=== PATIENT | female | born 1990 | race Caucasian/White ===

== ENCOUNTER 2019-06-14 22:25 | Emergency (ER) | payer OTHER ==
--- NOTE | 2019-06-14 22:48 | ER Document Report ---
ED Medical Screen (RME) - General Chief Complaint: Lower Abdominal Pain Stated Complaint: STOMACH PAIN Time Seen by Provider: 06/14/19 22:42 Mode of Arrival: Ambulatory Information source: Patient Notes: This 28-year-old female with history of Crohn's multiple blood transfusions and C. difficile presents emergency department with severe abdominal pain and diarrhea. She reports she believes she has C. difficile again. Reports she was on Levaquin and recently for oral infection. She also complains of lower abdominal pain. Reports she has not had a flare of her Crohn's in 15 months. Patient reports she is in severe pain no fever vomiting. She is visiting from [place]. I have greeted and performed a rapid initial assessment of this patient. A comprehensive ED assessment and evaluation of the patient, analysis of test results and completion of the medical decision making process will be conducted by additional ED providers. Dictation of this chart was performed using voice recognition software; therefore, there may be some unintended grammatical errors. - Related Data Allergies/Adverse Reactions: aspirin Allergy (Verified 06/14/19 22:42) ketorolac [From Toradol] Allergy (Verified 06/14/19 22:42) NSAIDS (Non-Steroidal Anti-Inflamma Allergy (Verified 06/14/19 22:42)
[2019-06-14 22:51] VITALS: BP 130/75
[2019-06-14 23:26] LABS: ABSOLUTE BASOPHILS # (AUTO) 0.1 10^3/uL (0.0-0.2); ABSOLUTE LYMPHOCYTES (AUTO) 1.3 10^3/uL (0.5-4.7); ABSOLUTE MONOCYTES (AUTO) 0.4 10^3/uL (0.1-1.4); ABSOLUTE NEUT (AUTO) 3.9 10^3/uL (1.7-8.2); BASOPHILS % (AUTO) 1.1 % (0-2); EOSINOPHILS % (AUTO) 0.2 % (0-6); HEMATOCRIT 32.2 % (36.0-47.0); HEMOGLOBIN 10.6 g/dL (12.0-15.5); LYMPHOCYTES % (AUTO) 22.8 % (13-45); MEAN CORPUSCULAR HEMOGLOBIN 26.3 pg (27.0-33.4); MEAN CORPUSCULAR VOLUME 80 fl (80-97); MONOCYTES % (AUTO) 6.7 % (3-13); PLATELET COUNT 326 10^3/uL (150-450); RED BLOOD COUNT 4.03 10^6/uL (3.72-5.28); RED CELL DISTRIBUTION WIDTH 16.7 % (11.5-14.0); SEGMENTED NEUTROPHILS % (AUTO) 69.2 % (42-78); TOTAL CELLS COUNTED % (AUTO) 100 %; WHITE BLOOD COUNT 5.6 10^3/uL (4.0-10.5)
== END 2019-06-15 01:30 | disposition left against medical advice (07) ==
LOC: ER 22:25
DX: Z53.21 Procedure and treatment not carried out due to patient leaving prior to being seen by health care provider (principal); R10.30 Lower abdominal pain, unspecified; R19.7 Diarrhea, unspecified
CPT/HCPCS: 36415; 85025; 87040; 99281

== ENCOUNTER 2019-06-15 13:21 | Emergency (ER) | payer OTHER ==
--- NOTE | 2019-06-15 13:34 | ER Document Report ---
ED Medical Screen (RME) - General Stated Complaint: ABDOMINAL PAIN Time Seen by Provider: 06/15/19 13:27 Mode of Arrival: Ambulatory Information source: Patient Notes: 28-year-old female with history of Crohn's and C. difficile presents emergency department with complaints of severe abdominal pain and diarrhea. Reports she was on Levaquin recently for an oral infection. So she is worried she has C. difficile again. She also complains of lower abdominal pain. Reports she has not had a flare of her Crohn's in 15 months. Patient reports she is in severe pain with no vomiting but reports fever this morning.. She is visiting from [place]. Patient was here last night but left without completing her visit. She reports she was up all night. Reports she used Zofran and Phenergan suppository without relief of symptoms. Patient is visiting from [place]. Reports she is here visiting her boyfriend. Denies reports BTL and she has not had sex. She looks nontoxic. I have greeted and performed a rapid initial assessment of this patient. A comprehensive ED assessment and evaluation of the patient, analysis of test results and completion of the medical decision making process will be conducted by additional ED providers. Dictation of this chart was performed using voice recognition software; therefore, there may be some unintended grammatical errors. - Related Data Allergies/Adverse Reactions: aspirin Allergy (Verified 06/15/19 13:35) ciprofloxacin [From Cipro] Allergy (Verified 06/15/19 13:35) haloperidol [From Haldol] Allergy (Verified 06/15/19 13:35) ketorolac [From Toradol] Allergy (Verified 06/15/19 13:35) NSAIDS (Non-Steroidal Anti-Inflamma Allergy (Verified 06/15/19 13:35) piperacillin [From Zosyn] Allergy (Verified 06/15/19 13:35) sulfamethoxazole [From Bactrim] Allergy (Verified 06/15/19 13:35) tazobactam [From Zosyn] Allergy (Verified 06/15/19 13:35) trimethoprim [From Bactrim] Allergy (Verified 06/15/19 13:35) Must be pre medicated proior to CT Allergy (Uncoded 06/15/19 13:35) Physical Exam - Vital signs Vitals: Temp Pulse Resp BP Pulse Ox 98.7 F 86 16 127/79 H 99 06/15/19 13:24 06/15/19 13:24 06/15/19 13:24 06/15/19 13:24 06/15/19 13:24 Course - Vital Signs Vital signs: Temp Pulse Resp BP Pulse Ox 98.7 F 86 16 127/79 H 99 06/15/19 13:24 06/15/19 13:24 06/15/19 13:24 06/15/19 13:24 06/15/19 13:24
--- NOTE | 2019-06-15 14:44 | ER Document Report ---
ED GI/ - General Chief Complaint: Abdominal Pain Stated Complaint: ABDOMINAL PAIN Time Seen by Provider: 06/15/19 13:27 Primary Care Provider: RANDOLPH OFSTER MD [ACTIVE STAFF] - Follow up as needed RICHI CARD MD [ACTIVE STAFF] - Follow up as needed Mode of Arrival: Ambulatory Information source: Patient Notes: Patient is a 28-year-old female with past medical history of Crohn's disease presenting with generalized abdominal pain, vomiting, diarrhea and fever. P atient reports all symptoms started yesterday. She reports T-max of 102 this morning. She reports history of having C. difficile in the past and having been on Humira although she has not taken that for quite some time. 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 TRAVEL OUTSIDE OF THE [place] IN LAST 30 DAYS: No - Related Data Allergies/Adverse Reactions: aspirin Allergy (Verified 06/15/19 13:35) ciprofloxacin [From Cipro] Allergy (Verified 06/15/19 13:35) haloperidol [From Haldol] Allergy (Verified 06/15/19 13:35) ketorolac [From Toradol] Allergy (Verified 06/15/19 13:35) NSAIDS (Non-Steroidal Anti-Inflamma Allergy (Verified 06/15/19 13:35) piperacillin [From Zosyn] Allergy (Verified 06/15/19 13:35) sulfamethoxazole [From Bactrim] Allergy (Verified 06/15/19 13:35) tazobactam [From Zosyn] Allergy (Verified 06/15/19 13:35) trimethoprim [From Bactrim] Allergy (Verified 06/15/19 13:35) Must be pre medicated proior to CT Allergy (Uncoded 06/15/19 13:35) Past Medical History - General Information source: Patient - Social History Smoking Status: Never Smoker Chew tobacco use (# tins/day): No Frequency of alcohol use: None Drug Abuse: Marijuana Family History: Reviewed & Not Pertinent Patient has suicidal ideation: No Patient has homicidal ideation: No GI Medical History: Reports: Hx Crohn's Disease Review of Systems - Review of Systems Constitutional: Fever EENT: No symptoms reported Cardiovascular: No symptoms reported Respiratory: No symptoms reported Gastrointestinal: Abdominal pain, Diarrhea, Nausea, Vomiting Genitourinary: No symptoms reported Female Genitourinary: No symptoms reported Musculoskeletal: No symptoms reported Skin: No symptoms reported Hematologic/Lymphatic: No symptoms reported Neurological/Psychological: No symptoms reported Physical Exam - Vital signs Vitals: Temp Pulse Resp BP Pulse Ox 98.7 F 86 16 127/79 H 99 06/15/19 13:24 06/15/19 13:24 06/15/19 13:24 06/15/19 13:24 06/15/19 13:24 - Notes Notes: PHYSICAL EXAMINATION: GENERAL: Well-appearing, well-nourished and in no acute distress. HEAD: Atraumatic, normocephalic. EYES: Pupils equal round and reactive to light, extraocular movements intact, conjunctiva are normal. ENT: Nares patent, oropharynx clear without exudates. Moist mucous membranes. NECK: Normal range of motion, supple without lymphadenopathy LUNGS: Breath sounds clear to auscultation bilaterally and equal. No wheezes rales or rhonchi. HEART: Regular rate and rhythm without murmurs ABDOMEN: Soft, nondistended abdomen. Mild generalized tenderness to palpation. No guarding, no rebound. No masses appreciated. Female : deferred Musculoskeletal: Normal range of motion, no pitting or edema. No cyanosis. NEUROLOGICAL: Cranial nerves grossly intact. Normal speech, normal gait. Normal sensory, motor exams PSYCH: Normal mood, normal affect. SKIN: Warm, Dry, normal turgor, no rashes or lesions noted. Course - Re-evaluation Re-evalutation: Patient appears well, nontoxic, vital signs as listed. Work-up today has been unremarkable as outlined below. Likely Crohn's flare. Will start patient on appropriate medications. Patient verbalizes understanding and agreement with this plan. ED return precautions were discussed. Laboratory 06/15/19 06/15/19 06/15/19 15:25 15:28 15:28 WBC 3.6 L RBC 3.87 Hgb 9.9 L Hct 31.1 L MCV 80 MCH 25.7 L MCHC 32.0 RDW 16.7 H Plt Count 305 Lymph % (Auto) 27.6 Stephens % (Auto) 6.7 Eos % (Auto) 0.4 Baso % (Auto) 1.0 Absolute Neuts (auto) 2.3 Absolute Lymphs (auto) 1.0 Absolute Monos (auto) 0.2 Absolute Eos (auto) 0.0 Absolute Basos (auto) 0.0 Seg Neutrophils % 64.3 Sodium 140.9 Potassium 4.2 Chloride 102 Carbon Dioxide 26 Anion Gap 13 BUN 21 H Creatinine 0.58 Est GFR ( Amer) > 60 Est GFR (MDRD) Non-Af > 60 Glucose 85 Calcium 10.1 Total Bilirubin 0.6 Direct Bilirubin 0.1 Neonat Total Bilirubin Not Reportable Neonat Direct Bilirubin Not Reportable Neonat Indirect Bili Not Reportable AST 21 ALT 9 Alkaline Phosphatase 57 Total Protein 8.4 H Albumin 5.2 H Urine Color SHERI Urine Appearance CLOUDY Urine pH 6.0 Ur Specific [place] 1.024 Urine Protein 30 H Urine Glucose (UA) NEGATIVE Urine Ketones NEGATIVE Urine Blood LARGE H Urine Nitrite NEGATIVE Urine Bilirubin NEGATIVE Urine Urobilinogen NEGATIVE Ur Leukocyte Esterase MODERATE H Urine WBC (Auto) 47 Urine RBC (Auto) 9 Urine Bacteria (Auto) TRACE Squamous Epi Cells Auto 16 Urine Mucus (Auto) MANY Urine Ascorbic Acid NEGATIVE Urine HCG, Qual NEGATIVE POC Stool Occult Blood 06/15/19 18:00 WBC RBC Hgb Hct MCV MCH MCHC RDW Plt Count Lymph % (Auto) Stephens % (Auto) Eos % (Auto) Baso % (Auto) Absolute Neuts (auto) Absolute Lymphs (auto) Absolute Monos (auto) Absolute Eos (auto) Absolute Basos (auto) Seg Neutrophils % Sodium Potassium Chloride Carbon Dioxide Anion Gap BUN Creatinine Est GFR ( Amer) Est GFR (MDRD) Non-Af Glucose Calcium Total Bilirubin Direct Bilirubin Neonat Total Bilirubin Neonat Direct Bilirubin Neonat Indirect Bili AST ALT Alkaline Phosphatase Total Protein Albumin Urine Color Urine Appearance Urine pH Ur Specific [place] Urine Protein Urine Glucose (UA) Urine Ketones Urine Blood Urine Nitrite Urine Bilirubin Urine Urobilinogen Ur Leukocyte Esterase Urine WBC (Auto) Urine RBC (Auto) Urine Bacteria (Auto) Squamous Epi Cells Auto Urine Mucus (Auto) Urine Ascorbic Acid Urine HCG, Qual POC Stool Occult Blood POSITIVE Abdomen/Pelvis CT 06/15/19 13:32 IMPRESSION: NO SIGNIFICANT OR ACUTE FINDING IN THE ABDOMEN OR PELVIS ON CT SCAN WITH IV CONTRAST. - Vital Signs Vital signs: Temp Pulse Resp BP Pulse Ox 98.4 F 79 16 110/59 L 98 06/15/19 18:15 06/15/19 18:15 06/15/19 18:15 06/15/19 18:15 06/15/19 18:15 - Laboratory Result Diagrams: 06/15/19 15:28 06/15/19 15:28 Laboratory results interpreted by me: 06/15/19 06/15/19 06/15/19 15:25 15:28 15:28 WBC 3.6 L Hgb 9.9 L Hct 31.1 L MCH 25.7 L RDW 16.7 H BUN 21 H Total Protein 8.4 H Albumin 5.2 H Urine Protein 30 H Urine Blood LARGE H Ur Leukocyte Esterase MODERATE H Discharge - Discharge Clinical Impression: Crohns disease Qualifiers: Gastrointestinal tract location: unspecified location Digestive disease complication type: unspecified complication Qualified Code(s): K50.919 - Crohn's disease, unspecified, with unspecified complications Abdominal pain Qualifiers: Abdominal location: unspecified location Qualified Code(s): R10.9 - Unspecified abdominal pain Condition: Stable Disposition: HOME, SELF-CARE Additional Instructions: You are seen in the emergency department today for a flareup of your Crohn's. Your white blood count was not elevated so there is no evidence of obvious infection at this time. Your hemoglobin and hematocrit did drop slightly but not enough to warrant any medical intervention. Please follow-up with gastroenterology, names have been provided for you below. Please take medications as prescribed. Return to the emergency department with any new or worsening symptoms. Prescriptions: Prednisone [Deltasone] 40 mg PO DAILY #14 tablet Metronidazole [Flagyl 500 mg Tablet] 500 mg PO TID #21 tablet Referrals: RANDOLPH FOSTER MD [ACTIVE STAFF] - Follow up as needed RICHI CADR MD [ACTIVE STAFF] - Follow up as needed
[2019-06-15] MEDS ORDERED: MORPHINE SULFATE 10 MG/ML INJ IV ONE (14:59)
[2019-06-15] MEDS ORDERED: ONDANSETRON HCL INJ/PF 4 MG/2 ML SDV IV ONE (14:59)
[2019-06-15] MEDS ORDERED: DIPHENHYDRAMINE HCL 50 MG/ML VIAL IV ONE (15:03)
[2019-06-15] MEDS ORDERED: FAMOTIDINE INJ/PF 20 MG/2 ML SDV IV ONE (15:03)
[2019-06-15] MEDS ORDERED: METHYLPREDNISOLONE INJ 125 MG/2 ML SDV IV ONE (15:03)
[2019-06-15 15:42] LABS: ABSOLUTE MONOCYTES (AUTO) 0.2 10^3/uL (0.1-1.4); ABSOLUTE NEUT (AUTO) 2.3 10^3/uL (1.7-8.2); EOSINOPHILS % (AUTO) 0.4 % (0-6); HEMATOCRIT 31.1 % (36.0-47.0); HEMOGLOBIN 9.9 g/dL (12.0-15.5); LYMPHOCYTES % (AUTO) 27.6 % (13-45); MEAN CORPUSCULAR HEMOGLOBIN 25.7 pg (27.0-33.4); MEAN CORPUSCULAR VOLUME 80 fl (80-97); MONOCYTES % (AUTO) 6.7 % (3-13); PLATELET COUNT 305 10^3/uL (150-450); RED BLOOD COUNT 3.87 10^6/uL (3.72-5.28); RED CELL DISTRIBUTION WIDTH 16.7 % (11.5-14.0); SEGMENTED NEUTROPHILS % (AUTO) 64.3 % (42-78); TOTAL CELLS COUNTED % (AUTO) 100 %; WHITE BLOOD COUNT 3.6 10^3/uL (4.0-10.5)
[2019-06-15 16:02] LABS: ALBUMIN 5.2 g/dL (3.5-5.0); ALKALINE PHOSPHATASE 57 U/L (38-126); ANION GAP 13 (5-19); ASPARTATE AMINO TRANSFERASE 21 U/L (14-36); BILIRUBIN,DIRECT 0.1 mg/dL (0.0-0.4); BILIRUBIN,TOTAL 0.6 mg/dL (0.2-1.3); BLOOD UREA NITROGEN 21 mg/dL (7-20); CALCIUM 10.1 mg/dL (8.4-10.2); CARBON DIOXIDE 26 mmol/L (22-30); CHLORIDE 102 mmol/L (98-107); GLUCOSE 85 mg/dL (75-110); POTASSIUM 4.2 mmol/L (3.6-5.0); TOTAL PROTEIN 8.4 g/dL (6.3-8.2)
[2019-06-15 16:19] LABS: APPEARANCE,URINE CLOUDY; BILIRUBIN,URINE NEGATIVE (NEGATIVE); COLOR,URINE AMBER; GLUCOSE, URINE NEGATIVE (NEGATIVE); KETONES,URINE NEGATIVE (NEGATIVE); LEUKOCYTE ESTERASE,URINE MODERATE (NEGATIVE); NITRITE,URINE NEGATIVE (NEGATIVE); PROTEIN,URINE 30 mg/dL (NEGATIVE); URINE SPECIFIC GRAVITY 1.024; UROBILINOGEN,URINE NEGATIVE mg/dL (<2.0)
--- NOTE | 2019-06-15 16:35 | RADIOLOGY REPORT (SQ) ---
EXAM DESCRIPTION: CT ABD/PELVIS WITH IV ONLY COMPLETED DATE/TIME: 06/15/2019 4:17 pm REASON FOR STUDY: pain diarrhea hx crohns COMPARISON: None. TECHNIQUE: CT scan of the abdomen and pelvis performed using helical scanning technique with dynamic intravenous contrast injection. No oral contrast. Images reviewed with lung, soft tissue, and bone windows. Reconstructed coronal and sagittal MPR images reviewed. Delayed images for evaluation of the urinary system also acquired. All images stored on PACS. All CT scanners at this facility use dose modulation, iterative reconstruction, and/or weight based d osing when appropriate to reduce radiation dose to as low as reasonably achievable (ALARA). [facility]: Dose Right [facility]: CareDose [facility]: Dose Right [facility]: Teradose 4D [facility]: Nexterra CONTRAST TYPE AND DOSE: contrast/concentration: Isovue 350.00 mg/ml; Total Contrast Delivered: 66.0 ml; Total Saline Delivered: 53.9 ml RENAL FUNCTION: None required. The patient is less than 50 years old. RADIATION DOSE: CT Rad equipment meets quality standard of care and radiation dose reduction techniq ues were employed. CTDIvol: 3.0 - 3.5 mGy. DLP: 340 mGy-cm.. LIMITATIONS: None. FINDINGS: LOWER CHEST: No significant findings. No nodules or infiltrates. LIVER: Normal size. No masses. No dilated ducts. SPLEEN: Normal size. No focal lesions. PANCREAS: No masses. No significant calcifications. No adjacent inflammation or peripancreatic fluid collections. Pancreatic duct not dilated. GALLBLADDER: Status post cholecystectomy with slight central intrahepatic and common duct distention, chronic. ADRENAL GLANDS: No significant masses or asymmetry. RIGHT KIDNEY AND URETER: No solid masses. No significant calcification. No hydronephrosis or hydroure ter. LEFT KIDNEY AND URETER: No solid masses. No significant calcification. No hydronephrosis or hydrouret er. AORTA AND VESSELS: No aneurysm. No dissection. Renal arteries, SMA, celiac without stenosis. RETROPERITONEUM: No retroperitoneal adenopathy, hemorrhage or masses. BOWEL AND PERITONEAL CAVITY: No masses or inflammatory changes. No free fluid or peritoneal masses. APPENDIX: Surgically absent. PELVIS: No mass. No free fluid. Normal bladder. ABDOMINAL WALL: No masses. No hernias. BONES: No significant or acute findings. OTHER: No other significant finding. IMPRESSION: NO SIGNIFICANT OR ACUTE FINDING IN THE ABDOMEN OR PELVIS ON CT SCAN WITH IV CONTRAST. TECHNICAL DOCUMENTATION: JOB ID: [id number] Quality ID # [id number]: Final reports with documentation of one or more dose reduction techniques (e.g., Au tomated exposure control, adjustment of the mA and/or kV according to patient size, use of iterative reconstruction technique) 2010 [email or web address]- All Rights Reserved Reading location - IP/workstation name: [email or web address]
[2019-06-15 18:16] VITALS: BP 110/59
== END 2019-06-15 18:26 | disposition home or self-care (01) ==
LOC: ER 13:21
DX: K50.919 Crohn's disease, unspecified, with unspecified complications (principal); R10.84 Generalized abdominal pain; R10.817 Generalized abdominal tenderness; R11.2 Nausea with vomiting, unspecified; R19.7 Diarrhea, unspecified; R50.9 Fever, unspecified; Z88.8 Allergy status to other drugs, medicaments and biological substances; Z88.1 Allergy status to other antibiotic agents; Z88.0 Allergy status to penicillin
CPT/HCPCS: 99284; 96374; 96375; 36415; 85025; 81025; 80053; 81001; 74177; J1200; J2930; J2270; J2405; S0028

== ENCOUNTER 2019-06-20 09:13 | Emergency (ER) | payer OTHER ==
[2019-06-20 09:31] VITALS: BP 117/65
[2019-06-20] MEDS ORDERED: PHENAZOPYRIDINE HCL 200 MG TABLET PO ONE (09:43)
[2019-06-20] MEDS ORDERED: ONDANSETRON HCL INJ/PF 4 MG/2 ML SDV IV ONE (09:43)
[2019-06-20] MEDS ORDERED: NORMAL SALINE 1000 ML 1,000 ML IV PRN (09:43)
--- NOTE | 2019-06-20 09:49 | ER Document Report ---
ED Medical Screen (RME) - General Chief Complaint: Urinary Problem Stated Complaint: PAINFUL URINATION,BLOOD IN URINE Time Seen by Provider: 06/20/19 09:43 Mode of Arrival: Ambulatory Information source: Patient Notes: 28-year-old female presented to ED for complaint of severe bladder pain with bilateral pain worse on the left. She states she does have some blood and clots in the urine. She does have interstitial cystitis. She has Crohn's. She has a history of a 5 years ago fecal implant. Patient is alert oriented respirations regular and unlabored speaking full sentences she is nontoxic in appearance. I have greeted and performed a rapid initial assessment of this patient. A comprehensive ED assessment and evaluation of the patient, analysis of test results and completion of medical decision making process will be conducted by an additional ED providers. TRAVEL OUTSIDE OF THE [place] IN LAST 30 DAYS: No - Related Data Allergies/Adverse Reactions: aspirin Allergy (Verified 06/15/19 13:35) ciprofloxacin [From Cipro] Allergy (Verified 06/15/19 13:35) haloperidol [From Haldol] Allergy (Verified 06/15/19 13:35) ketorolac [From Toradol] Allergy (Verified 06/15/19 13:35) NSAIDS (Non-Steroidal Anti-Inflamma Allergy (Verified 06/15/19 13:35) piperacillin [From Zosyn] Allergy (Verified 06/15/19 13:35) sulfamethoxazole [From Bactrim] Allergy (Verified 06/15/19 13:35) tazobactam [From Zosyn] Allergy (Verified 06/15/19 13:35) trimethoprim [From Bactrim] Allergy (Verified 06/15/19 13:35) Must be pre medicated proior to CT Allergy (Uncoded 06/15/19 13:35) Past Medical History - Social History Frequency of alcohol use: Rare Drug Abuse: Marijuana Renal/ Medical History: Reports: Hx Kidney Stones GI Medical History: Reports: Hx Crohn's Disease Physical Exam - Vital signs Vitals: Temp Pulse Resp BP Pulse Ox 97.9 F 84 16 117/65 100 06/20/19 09:28 06/20/19 09:28 06/20/19 09:28 06/20/19 09:28 06/20/19 09:28 Course - Vital Signs Vital signs: Temp Pulse Resp BP Pulse Ox 97.9 F 84 16 117/65 100 06/20/19 09:28 06/20/19 09:28 06/20/19 09:28 06/20/19 09:28 06/20/19 09:28
[2019-06-20 10:54] LABS: ABSOLUTE BASOPHILS # (AUTO) 0.1 10^3/uL (0.0-0.2); ABSOLUTE EOSINOPHILS # (AUTO) 0.1 10^3/uL (0.0-0.6); ABSOLUTE MONOCYTES (AUTO) 0.3 10^3/uL (0.1-1.4); ABSOLUTE NEUT (AUTO) 8.7 10^3/uL (1.7-8.2); BASOPHILS % (AUTO) 0.5 % (0-2); EOSINOPHILS % (AUTO) 0.7 % (0-6); HEMATOCRIT 32.4 % (36.0-47.0); HEMOGLOBIN 10.3 g/dL (12.0-15.5); LYMPHOCYTES % (AUTO) 10.2 % (13-45); MEAN CORPUSCULAR HEMOGLOBIN 25.4 pg (27.0-33.4); MEAN CORPUSCULAR HGB CONC 31.8 g/dL (32.0-36.0); MEAN CORPUSCULAR VOLUME 80 fl (80-97); MONOCYTES % (AUTO) 3.4 % (3-13); PLATELET COUNT 332 10^3/uL (150-450); RED BLOOD COUNT 4.07 10^6/uL (3.72-5.28); RED CELL DISTRIBUTION WIDTH 16.6 % (11.5-14.0); SEGMENTED NEUTROPHILS % (AUTO) 85.2 % (42-78); TOTAL CELLS COUNTED % (AUTO) 100 %; WHITE BLOOD COUNT 10.2 10^3/uL (4.0-10.5)
[2019-06-20 11:09] LABS: APPEARANCE,URINE CLOUDY; BILIRUBIN,URINE NEGATIVE (NEGATIVE); COLOR,URINE RED; GLUCOSE, URINE NEGATIVE (NEGATIVE); KETONES,URINE NEGATIVE (NEGATIVE); LEUKOCYTE ESTERASE,URINE MODERATE (NEGATIVE); NITRITE,URINE NEGATIVE (NEGATIVE); PROTEIN,URINE 100 mg/dL (NEGATIVE); URINE SPECIFIC GRAVITY 1.019; UROBILINOGEN,URINE NEGATIVE mg/dL (<2.0)
[2019-06-20 11:30] LABS: ALKALINE PHOSPHATASE 57 U/L (38-126); ANION GAP 10 (5-19); ASPARTATE AMINO TRANSFERASE 18 U/L (14-36); BILIRUBIN,DIRECT 0.1 mg/dL (0.0-0.4); BILIRUBIN,TOTAL 0.4 mg/dL (0.2-1.3); BLOOD UREA NITROGEN 17 mg/dL (7-20); CALCIUM 10.1 mg/dL (8.4-10.2); CARBON DIOXIDE 25 mmol/L (22-30); CHLORIDE 105 mmol/L (98-107); GLUCOSE 92 mg/dL (75-110); POTASSIUM 4.1 mmol/L (3.6-5.0); TOTAL PROTEIN 8.4 g/dL (6.3-8.2)
== END 2019-06-20 10:39 | disposition left against medical advice (07) ==
LOC: ER 09:13
DX: N30.11 Interstitial cystitis (chronic) with hematuria (principal); Z53.29 Procedure and treatment not carried out because of patient's decision for other reasons; Z88.8 Allergy status to other drugs, medicaments and biological substances; Z88.1 Allergy status to other antibiotic agents; Z88.0 Allergy status to penicillin
CPT/HCPCS: 36415; 87086; 84703; 85025; 87088; 80053; 81001; J3490; 87186

== ENCOUNTER 2019-07-13 18:13 | Emergency (ER) | payer OTHER, MEDICAID ==
[2019-07-13 18:19] VITALS: BP 119/69
--- NOTE | 2019-07-13 18:50 | ER Document Report ---
ED Medical Screen (RME) - General Chief Complaint: Nausea/Vomiting Stated Complaint: VOMITING Time Seen by Provider: 07/13/19 18:48 Mode of Arrival: Wheelchair Information source: Patient Notes: 28-year-old female presented to ED for nausea and vomiting for the last 2 days. She states she feels like her incision is ripping open her daughter is 5. She has had adhesions in this area 2 years ago. He states she had a blackout spell just before coming in here that is why the family brought her in now. She states she has Zofran and Phenergan at home neither one is helping her at this time. Patient is alert and oriented respirations regular nonlabored speaking in full sentences. She states her last menstrual cycle was a week and a half ago. TRAVEL OUTSIDE OF THE [place] IN LAST 30 DAYS: No - Related Data Allergies/Adverse Reactions: aspirin Allergy (Verified 07/13/19 18:40) ciprofloxacin [From Cipro] Allergy (Verified 07/13/19 18:40) haloperidol [From Haldol] Allergy (Verified 07/13/19 18:40) ketorolac [From Toradol] Allergy (Verified 07/13/19 18:40) NSAIDS (Non-Steroidal Anti-Inflamma Allergy (Verified 07/13/19 18:40) piperacillin [From Zosyn] Allergy (Verified 07/13/19 18:40) sulfamethoxazole [From Bactrim] Allergy (Verified 07/13/19 18:40) tazobactam [From Zosyn] Allergy (Verified 07/13/19 18:40) trimethoprim [From Bactrim] Allergy (Verified 07/13/19 18:40) Must be pre medicated proior to CT Allergy (Uncoded 07/13/19 18:40) Past Medical History - Social History Chew tobacco use (# tins/day): No Frequency of alcohol use: Rare Drug Abuse: Marijuana Renal/ Medical History: Reports: Hx Kidney Stones GI Medical History: Reports: Hx Crohn's Disease Physical Exam - Vital signs Vitals: Temp Pulse Resp BP Pulse Ox 97.9 F 100 16 119/69 100 07/13/19 18:18 07/13/19 18:18 07/13/19 18:18 07/13/19 18:18 07/13/19 18:18 Course - Vital Signs Vital signs: Temp Pulse Resp BP Pulse Ox 97.9 F 100 16 119/69 100 07/13/19 18:18 07/13/19 18:18 07/13/19 18:18 07/13/19 18:18 07/13/19 18:18
[2019-07-13] MEDS ORDERED: ONDANSETRON HCL INJ/PF 4 MG/2 ML SDV IM ONE (18:52)
== END 2019-07-13 19:45 | disposition left against medical advice (07) ==
LOC: ER 18:13
DX: R11.2 Nausea with vomiting, unspecified (principal); Z88.6 Allergy status to analgesic agent; Z88.3 Allergy status to other anti-infective agents; Z87.442 Personal history of urinary calculi

== ENCOUNTER 2019-08-14 13:44 | Emergency (ER) | payer OTHER ==
[2019-08-14 13:48] VITALS: BP 135/79
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
== END 2019-08-14 15:10 | disposition home or self-care (01) ==
LOC: ER 13:44
DX: M25.511 Pain in right shoulder (principal); T14.90XA Injury, unspecified, initial encounter; M25.561 Pain in right knee; M25.551 Pain in right hip; R07.81 Pleurodynia; V49.50XA Passenger injured in collision with unspecified motor vehicles in traffic accident, initial encounter; Z88.8 Allergy status to other drugs, medicaments and biological substances; Z88.1 Allergy status to other antibiotic agents; Z88.0 Allergy status to penicillin
CPT/HCPCS: 99283

== ENCOUNTER 2019-08-28 18:01 | Emergency (ER) | payer OTHER ==
[2019-08-28 19:01] LABS: APPEARANCE,URINE SLIGHTLY-CLOUDY; BILIRUBIN,URINE NEGATIVE (NEGATIVE); COLOR,URINE YELLOW; GLUCOSE, URINE NEGATIVE (NEGATIVE); KETONES,URINE NEGATIVE (NEGATIVE); LEUKOCYTE ESTERASE,URINE SMALL (NEGATIVE); NITRITE,URINE NEGATIVE (NEGATIVE); PROTEIN,URINE 30 mg/dL (NEGATIVE); URINE SPECIFIC GRAVITY 1.021; UROBILINOGEN,URINE NEGATIVE mg/dL (<2.0)
[2019-08-28] MEDS ORDERED: FENTANYL CITRATE INJ/PF 100 MCG/2 ML AMPUL IV ONE (20:04)
[2019-08-28] MEDS ORDERED: ONDANSETRON HCL INJ/PF 4 MG/2 ML SDV IV ONE (20:06)
[2019-08-28] MEDS ORDERED: NORMAL SALINE 1000 ML 1,000 ML IV ONE ×2 (20:06→22:27)
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
[2019-08-28 20:17] LABS: ABSOLUTE EOSINOPHILS # (AUTO) 0.1 10^3/uL (0.0-0.6); ABSOLUTE LYMPHOCYTES (AUTO) 1.7 10^3/uL (0.5-4.7); ABSOLUTE MONOCYTES (AUTO) 0.4 10^3/uL (0.1-1.4); ABSOLUTE NEUT (AUTO) 3.7 10^3/uL (1.7-8.2); BASOPHILS % (AUTO) 0.7 % (0-2); EOSINOPHILS % (AUTO) 1.6 % (0-6); HEMATOCRIT 33.9 % (36.0-47.0); HEMOGLOBIN 11.1 g/dL (12.0-15.5); LYMPHOCYTES % (AUTO) 28.5 % (13-45); MEAN CORPUSCULAR HGB CONC 32.9 g/dL (32.0-36.0); MEAN CORPUSCULAR VOLUME 76 fl (80-97); MONOCYTES % (AUTO) 7.1 % (3-13); PLATELET COUNT 384 10^3/uL (150-450); RED BLOOD COUNT 4.46 10^6/uL (3.72-5.28); RED CELL DISTRIBUTION WIDTH 18.2 % (11.5-14.0); SEGMENTED NEUTROPHILS % (AUTO) 62.1 % (42-78); TOTAL CELLS COUNTED % (AUTO) 100 %; WHITE BLOOD COUNT 5.9 10^3/uL (4.0-10.5)
[2019-08-28 20:29] LABS: ALBUMIN 5.2 g/dL (3.5-5.0); ALKALINE PHOSPHATASE 105 U/L (38-126); ANION GAP 13 (5-19); ASPARTATE AMINO TRANSFERASE 27 U/L (14-36); BILIRUBIN,DIRECT 0.1 mg/dL (0.0-0.4); BILIRUBIN,TOTAL 0.4 mg/dL (0.2-1.3); BLOOD UREA NITROGEN 15 mg/dL (7-20); CALCIUM 10.4 mg/dL (8.4-10.2); CARBON DIOXIDE 25 mmol/L (22-30); CHLORIDE 102 mmol/L (98-107); GLUCOSE 93 mg/dL (75-110); POTASSIUM 4.8 mmol/L (3.6-5.0); TOTAL PROTEIN 8.8 g/dL (6.3-8.2)
--- NOTE | 2019-08-28 22:33 | ER Document Report ---
ED GI/ - General Chief Complaint: Abdominal Pain Stated Complaint: SHORTNESS OF BREATH Time Seen by Provider: 08/28/19 19:53 Primary Care Provider: ALEXUS MYERS MD [Primary Care Provider] - Follow up as needed Mode of Arrival: Ambulatory Notes: Ms. Morales is a 28 yo f w/ PMH Crohn's disease and iron deficiency anemia presenting to the ED for abdominal pain. States she has multiple episodes of diarrhea throughout the day that essentially nonstop. The diarrhea is quite foul-smelling in nature. Patient states that she was just discharged from [facility] on Wednesday. Prior to discharge this past Wednesday, the patient was started on IV antibiotic which she is unsure the name of states it starts with a C. She was in transition to the same antibiotic p.o. but stopped it yesterday she states she is worried that it is making her feel worse. She also endorses ongoing vomiting and states she is been unable to keep down p.o. Patient states that her abdominal pain is primarily in the left lower quadrant. Subjective chills without any documented fevers. Patient states that she was previously on Pentasa with remission for the past year. In addition, the patient had a fecal transplant approximately 4 years ago which helped her with symptoms for quite some time. No chest pain, cough or shortness of breath. TRAVEL OUTSIDE OF THE [place] IN LAST 30 DAYS: Yes - Related Data Allergies/Adverse Reactions: aspirin Allergy (Verified 07/13/19 18:40) ciprofloxacin [From Cipro] Allergy (Verified 07/13/19 18:40) haloperidol [From Haldol] Allergy (Verified 07/13/19 18:40) ketorolac [From Toradol] Allergy (Verified 07/13/19 18:40) NSAIDS (Non-Steroidal Anti-Inflamma Allergy (Verified 07/13/19 18:40) piperacillin [From Zosyn] Allergy (Verified 07/13/19 18:40) sulfamethoxazole [From Bactrim] Allergy (Verified 07/13/19 18:40) tazobactam [From Zosyn] Allergy (Verified 07/13/19 18:40) trimethoprim [From Bactrim] Allergy (Verified 07/13/19 18:40) Must be pre medicated proior to CT Allergy (Uncoded 07/13/19 18:40) Past Medical History - General Information source: Patient - Social History Smoking Status: Never Smoker Chew tobacco use (# tins/day): No Frequency of alcohol use: None Drug Abuse: None Family History: Reviewed & Not Pertinent Patient has suicidal ideation: No Patient has homicidal ideation: No Renal/ Medical History: Reports: Hx Kidney Stones GI Medical History: Reports: Hx Crohn's Disease Musculoskeletal Medical History: Reports Hx Musculoskeletal Trauma Infectious Medical History: Reports: Hx C-Diff Review of Systems - Review of Systems Constitutional: See HPI EENT: No symptoms reported Cardiovascular: No symptoms reported Respiratory: No symptoms reported Gastrointestinal: See HPI Genitourinary: No symptoms reported Female Genitourinary: No symptoms reported Musculoskeletal: No symptoms reported Skin: No symptoms reported Hematologic/Lymphatic: No symptoms reported Neurological/Psychological: No symptoms reported Physical Exam - Vital signs Vitals: Temp Resp Pulse Ox 98.1 F 16 100 08/28/19 18:01 08/28/19 18:01 08/28/19 18:01 Interpretation: Normal - General General appearance: Appears well, Alert - HEENT Head: Normocephalic, Atraumatic Eyes: Normal Pupils: PERRL Mucous membranes: Dry - Respiratory Respiratory status: No respiratory distress Chest status: Nontender Breath sounds: Normal Chest palpation: Normal - Cardiovascular Rhythm: Regular Heart sounds: Normal auscultation Murmur: No - Abdominal Inspection: Normal Distension: No distension Bowel sounds: Normal Tenderness: Tender - In the left lower quadrant without any rebound or guarding.. No: McBurney's point, Borges's sign, Guarding, Rebound Organomegaly: No organomegaly - Back Back: Normal, Nontender - Extremities General upper extremity: Normal inspection, Nontender, Normal color, Normal ROM, Normal temperature General lower extremity: Normal inspection, Nontender, Normal color, Normal ROM, Normal temperature, Normal weight bearing. No: Arabella's sign - Neurological Neuro grossly intact: Yes Cognition: Normal Orientation: AAOx4 [place] Coma Scale Eye Opening: Spontaneous [place] Coma Scale Verbal: Oriented [place] Coma Scale Motor: Obeys Commands Madhuri Coma Scale Total: 15 Speech: Normal Motor strength normal: LUE, RUE, LLE, RLE Sensory: Normal - Psychological Associated symptoms: Normal affect, Normal mood - Skin Skin Temperature: Warm Skin Moisture: Dry Skin Color: Normal Course - Re-evaluation Re-evalutation: She is generally well-appearing nontoxic. Initial vitals goal for mild tachycardia. Differential diagnosis includes Crohn's flare, electrolyte abnormality, dehydration, fistula formation (less likely) 08/28/19 22:34 I spoke in extensive amount of time discussing this patient and her significant other (>25min). Patient is adamant she does not want another CT as she has had numerous CTs in the past 2 years. She has been dealing with C. difficile on and off for the past 19 months and been placed on multiple antibiotics. She states that Levaquin was the first antibiotic that caused her to get C. difficile in the first place. Patient's labs are all okay doing CBC, CMP and UA. Patient's stool samples were sent prior to my evaluation. I noted that the C. difficile had not resulted so nursing staff called. Nursing staff states that the lab now back is all C. difficile and they run them at 3 AM. I explained that this would alter the patient's care and would be much more beneficial of the patient's C. difficile could be resulted now. Charge nurse Yue will call down the lab and see what can be done in regards to this. At this point in time patient feels that the risk of further CT is worse than what it could provide given that she is lived with Crohn's for many years. Given that it is 10:30 at night, unable to order MRI. 08/28/19 23:09 Patient's nurse Sarah presented to me and stated that the patient is no longer willing to wait for the C. difficile results. Patient had explained numerous times that she does not want to get another CT given her extensive Crohn's history and many previous CTs. charge nurse Yue, was able to call the lab and discussed with them running the patient C. difficile sooner than 3 AM and they are actively doing it however again the patient is unable to wait for the result. Unable to order MRI at 11 PM. Patient labs are otherwise unremarkable and her abdomen pelvis examination is nonacute. Patient given return precautions and will be discharged with instructions to follow-up with her GI doctor. - Vital Signs Vital signs: Temp Pulse Resp BP Pulse Ox 98.1 F 101 H 16 128/95 H 100 08/28/19 19:01 08/28/19 19:01 08/28/19 19:01 08/28/19 19:01 08/28/19 19:01 - Laboratory Result Diagrams: 08/28/19 19:19 08/28/19 19:19 Laboratory results interpreted by me: 08/28/19 08/28/19 08/28/19 18:20 19:19 19:19 Hgb 11.1 L Hct 33.9 L MCV 76 L MCH 25.0 L RDW 18.2 H Calcium 10.4 H Total Protein 8.8 H Albumin 5.2 H Urine Protein 30 H Urine Blood SMALL H Ur Leukocyte Esterase SMALL H Discharge - Discharge Clinical Impression: History of Crohn's disease Abdominal pain Qualifiers: Abdominal location: left lower quadrant Qualified Code(s): R10.32 - Left lower quadrant pain Condition: Good Disposition: HOME, SELF-CARE Instructions: Abdominal Pain ([facility]), Crohn's Disease ([facility]) Additional Instructions: You have decided to leave the emergency department today without awaiting the results of the C. difficile. You have also decided to forego a CT scan to further evaluate your Crohn's disease. An MRI is not possible at 10:30 PM at night. Your labs are within normal limits. If the C. difficile returns is positive, and member from the hospital team will call you and notify you that it is positive. I would recommend that you follow-up with your GI physician. Referrals: ALEXUS MYERS MD [Primary Care Provider] - Follow up as needed
[2019-08-28] MEDS ORDERED: METHYLPREDNISOLONE INJ 125 MG/2 ML SDV IV ONE (22:40)
[2019-08-28 23:21] VITALS: BP 132/73
[2019-08-28 23:42] LABS: C DIFFICILE GDH NEGATIVE (NEGATIVE)
== END 2019-08-28 23:39 | disposition home or self-care (01) ==
LOC: ER 18:01
DX: K50.90 Crohn's disease, unspecified, without complications (principal); R10.32 Left lower quadrant pain; R10.814 Left lower quadrant abdominal tenderness; Z88.8 Allergy status to other drugs, medicaments and biological substances; Z88.1 Allergy status to other antibiotic agents; Z88.0 Allergy status to penicillin
CPT/HCPCS: 99284; 96361; 96374; 96375; 86900; 86901; 36415; 87045; 89055; 87205; 86850; 83690; 84703; 85025; 82272; 81025; 80053; 81001; 87324; 87449; J3010; J2405; J7030

== ENCOUNTER 2019-09-13 15:27 | Emergency (ER) | payer OTHER ==
[2019-09-13] MEDS ORDERED: OXYCODONE-ACETAMINOPHEN 5-325 MG TABLET PO ONE (16:00)
--- NOTE | 2019-09-13 16:02 | ER Document Report ---
ED Medical Screen (RME) - General Chief Complaint: Vaginal Bleeding Stated Complaint: VAGINAL BLEEDING Time Seen by Provider: 09/13/19 15:56 Primary Care Provider: ALEXUS MYERS MD [Primary Care Provider] - Follow up as needed Mode of Arrival: Ambulatory Information source: Patient Notes: 28-year-old female with history of endometriosis and Crohn's presents today with complaints of abdominal cramping and vaginal bleeding for the past 3 days. Reports that she is having heavy vaginal bleeding having to change her Kotex pad every hour. Reports history of ovarian cyst. Denies fever reports she has vomited from the pain. Took Tylenol without relief of symptoms. I have greeted and performed a rapid initial assessment of this patient. A comprehensive ED assessment and evaluation of the patient, analysis of test results and completion of the medical decision making process will be conducted by additional ED providers. TRAVEL OUTSIDE OF THE [place] IN LAST 30 DAYS: Yes - Related Data Allergies/Adverse Reactions: aspirin Allergy (Verified 09/13/19 15:50) ciprofloxacin [From Cipro] Allergy (Verified 09/13/19 15:50) haloperidol [From Haldol] Allergy (Verified 09/13/19 15:50) ketorolac [From Toradol] Allergy (Verified 09/13/19 15:50) NSAIDS (Non-Steroidal Anti-Inflamma Allergy (Verified 09/13/19 15:50) piperacillin [From Zosyn] Allergy (Verified 09/13/19 15:50) sulfamethoxazole [From Bactrim] Allergy (Verified 09/13/19 15:50) tazobactam [From Zosyn] Allergy (Verified 09/13/19 15:50) trimethoprim [From Bactrim] Allergy (Verified 09/13/19 15:50) Must be pre medicated proior to CT Allergy (Uncoded 09/13/19 15:50) Past Medical History Renal/ Medical History: Reports: Hx Kidney Stones GI Medical History: Reports: Hx Crohn's Disease Musculoskeltal Medical History: Reports Hx Musculoskeletal Trauma Infectious Medical History: Reports: Hx C-Diff Doctor's Discharge - Discharge Referrals: ALEXUS MYERS MD [Primary Care Provider] - Follow up as needed
[2019-09-13 17:14] LABS: APPEARANCE,URINE SLIGHTLY-CLOUDY; BILIRUBIN,URINE NEGATIVE (NEGATIVE); COLOR,URINE YELLOW; GLUCOSE, URINE NEGATIVE (NEGATIVE); KETONES,URINE NEGATIVE (NEGATIVE); LEUKOCYTE ESTERASE,URINE MODERATE (NEGATIVE); NITRITE,URINE NEGATIVE (NEGATIVE); PROTEIN,URINE NEGATIVE (NEGATIVE); URINE SPECIFIC GRAVITY 1.012; UROBILINOGEN,URINE NEGATIVE mg/dL (<2.0)
--- NOTE | 2019-09-13 17:20 | RADIOLOGY REPORT (SQ) ---
EXAM DESCRIPTION: U/S NON OB PEL TV W/DOPPLER COMPLETED DATE/TIME: 09/13/2019 4:35 pm REASON FOR STUDY: pain, heavy bleeding, hx ovarian cyst LMP 08/28/2019. COMPARISON: None. TECHNIQUE: Dynamic and static grayscale images acquired of the pelvis via transvaginal approach and recorded on PACS. Additional selected color Doppler and spectral images recorded. LIMITATIONS: None. FINDINGS: UTERUS: Contour normal. No mass. ENDOMETRIAL STRIPE: No focal or generalized thickening. No masses. CERVIX: 2.3 cm. No nabothian cysts. RIGHT OVARY AND DOPPLER: Normal size. No worrisome masses. Normal arterial vascular flow without evid ence for torsion. LEFT OVARY AND DOPPLER: Ovary not seen. FREE FLUID: None noted. OTHER: No other significant finding. MEASUREMENTS: UTERUS: 8.7 x 5.3 x 4.7 cm. ENDOMETRIAL STRIPE: 9 mm. RIGHT OVARY: 2.5 x 2.4 x 1.4 cm. LEFT OVARY: Not seen. IMPRESSION: NORMAL TRANSVAGINAL PELVIC ULTRASOUND. TECHNICAL DOCUMENTATION: JOB ID: [id number]- All Rights Reserved Rev-02/04 Reading location - IP/workstation name: [email or web address]
[2019-09-13 17:58] LABS: ABSOLUTE LYMPHOCYTES (AUTO) 1.2 10^3/uL (0.5-4.7); ABSOLUTE MONOCYTES (AUTO) 0.2 10^3/uL (0.1-1.4); ABSOLUTE NEUT (AUTO) 2.6 10^3/uL (1.7-8.2); BASOPHILS % (AUTO) 0.8 % (0-2); EOSINOPHILS % (AUTO) 0.9 % (0-6); HEMATOCRIT 32.7 % (36.0-47.0); HEMOGLOBIN 10.6 g/dL (12.0-15.5); LYMPHOCYTES % (AUTO) 29.7 % (13-45); MEAN CORPUSCULAR HEMOGLOBIN 25.8 pg (27.0-33.4); MEAN CORPUSCULAR HGB CONC 32.5 g/dL (32.0-36.0); MEAN CORPUSCULAR VOLUME 79 fl (80-97); MONOCYTES % (AUTO) 5.9 % (3-13); PLATELET COUNT 286 10^3/uL (150-450); RED BLOOD COUNT 4.13 10^6/uL (3.72-5.28); SEGMENTED NEUTROPHILS % (AUTO) 62.7 % (42-78); TOTAL CELLS COUNTED % (AUTO) 100 %; WHITE BLOOD COUNT 4.2 10^3/uL (4.0-10.5)
[2019-09-13] MEDS ORDERED: FENTANYL CITRATE INJ/PF 100 MCG/2 ML AMPUL IV ONE ×2 (18:03→18:55)
[2019-09-13 18:10] LABS: ALBUMIN 4.9 g/dL (3.5-5.0); ALKALINE PHOSPHATASE 83 U/L (38-126); ANION GAP 12 (5-19); ASPARTATE AMINO TRANSFERASE 25 U/L (14-36); BILIRUBIN,DIRECT 0.1 mg/dL (0.0-0.4); BILIRUBIN,TOTAL 0.4 mg/dL (0.2-1.3); BLOOD UREA NITROGEN 10 mg/dL (7-20); CALCIUM 9.8 mg/dL (8.4-10.2); CARBON DIOXIDE 24 mmol/L (22-30); CHLORIDE 104 mmol/L (98-107); GLUCOSE 87 mg/dL (75-110); POTASSIUM 4.3 mmol/L (3.6-5.0); TOTAL PROTEIN 8.1 g/dL (6.3-8.2)
[2019-09-13] MEDS ORDERED: ONDANSETRON HCL INJ/PF 4 MG/2 ML SDV IV ONE (18:17)
[2019-09-13] MEDS ORDERED: PROMETHAZINE HCL INJ 25 MG/1 ML VIAL IM ONE (18:22)
--- NOTE | 2019-09-13 18:22 | ER Document Report ---
ED GI/ - General Chief Complaint: Vaginal Bleeding Stated Complaint: VAGINAL BLEEDING Time Seen by Provider: 09/13/19 15:56 Primary Care Provider: ALEXUS MYERS MD [Primary Care Provider] - Follow up as needed Mode of Arrival: Ambulatory Notes: 28-year-old female with history of endometriosis and Crohn's disease presents to the emergency department with chief complaint of lower abdominal cramping and heavy vaginal bleeding. LMP on 08/28/2019 patient states she is typically regular. Patient initially thought it was a typical endometriosis flareup but the pain is more significant today. Patient states that she has nausea, no diarrhea. No fever or chills. No vomiting. Denies urinary symptoms. TRAVEL OUTSIDE OF THE [place] IN LAST 30 DAYS: Yes - Related Data Allergies/Adverse Reactions: aspirin Allergy (Verified 09/13/19 15:50) ciprofloxacin [From Cipro] Allergy (Verified 09/13/19 15:50) haloperidol [From Haldol] Allergy (Verified 09/13/19 15:50) ketorolac [From Toradol] Allergy (Verified 09/13/19 15:50) NSAIDS (Non-Steroidal Anti-Inflamma Allergy (Verified 09/13/19 15:50) piperacillin [From Zosyn] Allergy (Verified 09/13/19 15:50) sulfamethoxazole [From Bactrim] Allergy (Verified 09/13/19 15:50) tazobactam [From Zosyn] Allergy (Verified 09/13/19 15:50) trimethoprim [From Bactrim] Allergy (Verified 09/13/19 15:50) Must be pre medicated proior to CT Allergy (Uncoded 09/13/19 15:50) Home Medications: DOD/[facility] [place] Past Medical History - General Information source: Patient - Social History Smoking Status: Never Smoker Chew tobacco use (# tins/day): No Frequency of alcohol use: Occasional Drug Abuse: Marijuana Family History: Reviewed & Not Pertinent Patient has suicidal ideation: No Patient has homicidal ideation: No Renal/ Medical History: Reports: Hx Kidney Stones GI Medical History: Reports: Hx Crohn's Disease Musculoskeletal Medical History: Reports Hx Musculoskeletal Trauma Infectious Medical History: Reports: Hx C-Diff Review of Systems - Review of Systems Constitutional: See HPI EENT: No symptoms reported Cardiovascular: See HPI Respiratory: See HPI Gastrointestinal: See HPI Genitourinary: See HPI Female Genitourinary: See HPI Musculoskeletal: No symptoms reported Skin: No symptoms reported Hematologic/Lymphatic: No symptoms reported Neurological/Psychological: No symptoms reported Physical Exam - Notes Notes: PHYSICAL EXAMINATION: Reviewed vital signs and charting by RN GENERAL: Alert, interacts well. No acute distress. HEAD: Normocephalic, atraumatic. EYES: Pupils equal and round. Extraocular movements intact. ENT: Oral mucosa moist, tongue midline. NECK: Full range of motion. Trachea midline. LUNGS: Clear to auscultation bilaterally, no wheezes, rales, or rhonchi. No respiratory distress. HEART: Regular rate and rhythm. No murmur ABDOMEN: soft, lower abdominal tenderness to palpation. Mild distention. Bowel sounds present EXTREMITIES: Moves all 4 extremities spontaneously. No edema, No cyanosis. PSYCH: Normal affect, normal mood. SKIN: Warm, dry, normal turgor. No rashes or lesions noted. Course - Re-evaluation Re-evalutation: 09/13/19 18:20 Patient presents with abnormal vaginal bleeding. Transvaginal ultrasound was normal as there is no evidence of a ruptured ovarian cyst, mass, or any other concerning findings. Patient was mildly anemic at 10.6 but is asymptomatic. Patient does have findings consistent with urinary tract infection on UA and I am going to send for culture. I gave patient the option to wait for culture results in 48 hours because it had moderate leuk esterase with 27 WBCs but she would prefer to treat now and she is going to call to follow-up on the culture. Patient's pain controlled with some fentanyl 50 mcg IV once. She did receive a Percocet in triage over 2 hours ago. Once patient's pain is adequately controlled her work-up was overall very reassuring and she will be stable for discharge. I am going to give patient strict return precautions that if she continues to have persistent heavy bleeding that she should return to the emergency department if she becomes symptomatic as she has gotten acutely anemic in the past due to a Crohn's flareup. - Laboratory Result Diagrams: 09/13/19 17:10 09/13/19 17:10 Laboratory results interpreted by me: 09/13/19 09/13/19 16:35 17:10 Hgb 10.6 L Hct 32.7 L MCV 79 L MCH 25.8 L RDW 21.0 H Urine Blood LARGE H Ur Leukocyte Esterase MODERATE H Discharge - Discharge Clinical Impression: Abdominal pain Qualifiers: Abdominal location: lower abdomen, unspecified Qualified Code(s): R10.30 - Lower abdominal pain, unspecified Urinary tract infection Qualifiers: Urinary tract infection type: acute cystitis Hematuria presence: with hematuria Qualified Code(s): N30.01 - Acute cystitis with hematuria Condition: Good Disposition: HOME, SELF-CARE Additional Instructions: Your urine shows findings consistent with a urinary tract infection. Please take all the antibiotics as directed even if your symptoms have improved. You can call to follow-up on the culture in 48 to 72 hours and see if it grew anything out if you want to stop taking the antibiotics. Please follow-up with your primary care physician as needed. Return to emergency room if you develop fever >101F, persistent vomiting, become lethargic, have severe pain in your sides, or any other symptoms that are concerning to you. Your hemoglobin here was 10.6. This is slightly anemic but based on our conversation if you continue to have heavy bleeding and you start to become symptomatic with lightheadedness, dizziness, shortness of breath, weakness you need to immediately return to the emergency department. If you start noticing the symptoms early with the bleeding come sooner rather than later. Referrals: ALEXUS MYERS MD [Primary Care Provider] - Follow up as needed
[2019-09-13] MEDS ORDERED: CEFTRIAXONE 1 GM/D5W RTU 1 GM/50 ML RTUPB IV ONE (19:00)
[2019-09-13 19:15] VITALS: BP 116/54
== END 2019-09-13 19:11 | disposition home or self-care (01) ==
LOC: ER 15:27
DX: N30.01 Acute cystitis with hematuria (principal); N93.9 Abnormal uterine and vaginal bleeding, unspecified; R10.30 Lower abdominal pain, unspecified; D64.9 Anemia, unspecified; R11.0 Nausea; Z88.8 Allergy status to other drugs, medicaments and biological substances; Z88.1 Allergy status to other antibiotic agents
CPT/HCPCS: 96376; 99284; 96372; 96375; 96365; 86900; 86901; 36415; 87086; 86850; 85025; 81025; 87088; 80053; 81001; 87186; 76830; 93976; J3010; J2550; J0696

== ENCOUNTER 2019-09-23 15:53 | Emergency (ER) | payer OTHER ==
[2019-09-23 16:08] VITALS: BP 119/63
== END 2019-09-23 16:50 | disposition left against medical advice (07) ==
LOC: ER 15:53
DX: Z53.21 Procedure and treatment not carried out due to patient leaving prior to being seen by health care provider (principal)

== ENCOUNTER 2019-09-24 11:42 | Emergency (ER) | payer MEDICAID, OTHER ==
[2019-09-24] MEDS ORDERED: ONDANSETRON HCL INJ/PF 4 MG/2 ML SDV IV ONE (12:30)
--- NOTE | 2019-09-24 12:32 | ER Document Report ---
ED Medical Screen (RME) - General Chief Complaint: Rectal Bleeding Stated Complaint: RECTAL BLEEDING Time Seen by Provider: 09/24/19 12:20 Primary Care Provider: ALEXUS MYERS MD [Primary Care Provider] - Follow up as needed Notes: Patient is a 28-year-old female who presents the emergency department with a chief complaint of rectal bleeding blood in her stool. She also has blood in her vomit. She was seen at [facility] this past year with the same issues. She was also admitted at that time. He has a history of Crohn's disease. She states that she is feeling like she has a Crohn's flare. She also has history of C. difficile. Exam: Soft, mildly tender generalized abdomen. I have greeted and performed a rapid initial assessment of this patient. A comprehensive ED assessment and evaluation of the patient, analysis of test results and completion of medical decision making process will be conducted by an additional ED providers. TRAVEL OUTSIDE OF THE [place] IN LAST 30 DAYS: No - Related Data Allergies/Adverse Reactions: aspirin Allergy (Verified 09/13/19 15:50) ciprofloxacin [From Cipro] Allergy (Verified 09/13/19 15:50) dicyclomine [From Bentyl] Allergy (Verified 09/24/19 12:16) haloperidol [From Haldol] Allergy (Verified 09/13/19 15:50) ketorolac [From Toradol] Allergy (Verified 09/13/19 15:50) NSAIDS (Non-Steroidal Anti-Inflamma Allergy (Verified 09/13/19 15:50) piperacillin [From Zosyn] Allergy (Verified 09/13/19 15:50) sulfamethoxazole [From Bactrim] Allergy (Verified 09/13/19 15:50) tazobactam [From Zosyn] Allergy (Verified 09/13/19 15:50) trimethoprim [From Bactrim] Allergy (Verified 09/13/19 15:50) Must be pre medicated proior to CT Allergy (Uncoded 09/13/19 15:50) Past Medical History - Social History Chew tobacco use (# tins/day): No Frequency of alcohol use: Rare Drug Abuse: None Renal/ Medical History: Reports: Hx Kidney Stones GI Medical History: Reports: Hx Crohn's Disease Musculoskeltal Medical History: Reports Hx Musculoskeletal Trauma Infectious Medical History: Reports: Hx C-Diff Physical Exam - Vital signs Vitals: Temp Pulse Resp BP Pulse Ox 98.9 F 94 16 114/66 100 09/24/19 11:45 09/24/19 11:45 09/24/19 11:45 09/24/19 11:45 09/24/19 11:45 Course - Vital Signs Vital signs: Temp Pulse Resp BP Pulse Ox 98.9 F 94 16 114/66 100 09/24/19 11:45 09/24/19 11:45 09/24/19 11:45 09/24/19 11:45 09/24/19 11:45 Doctor's Discharge - Discharge Referrals: ALEXUS MYERS MD [Primary Care Provider] - Follow up as needed
[2019-09-24 14:31] LABS: APPEARANCE,URINE SLIGHTLY-CLOUDY; BILIRUBIN,URINE NEGATIVE (NEGATIVE); COLOR,URINE YELLOW; GLUCOSE, URINE NEGATIVE (NEGATIVE); KETONES,URINE NEGATIVE (NEGATIVE); PROTEIN,URINE NEGATIVE (NEGATIVE); UROBILINOGEN,URINE NEGATIVE mg/dL (<2.0)
[2019-09-24] MEDS ORDERED: MORPHINE SULFATE 10 MG/ML INJ IV ONE ×2 (14:52→18:28)
[2019-09-24] MEDS ORDERED: PROMETHAZINE HCL INJ 25 MG/1 ML VIAL IV ONE (14:53)
[2019-09-24] MEDS ORDERED: DEXAMETHASONE SOD PHOS INJ 10 MG/1 ML VIAL IV ONE (14:53)
--- NOTE | 2019-09-24 15:27 | ER Document Report ---
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 IN LAST 30 DAYS: No - HPI Patient complains to provider of: Rectal bleeding Crohn's exacerbation e ndometriosis exacerbation and kidney Onset: This morning - Patient and sarthak Mitchell advise ever since they moved into base housing with black mold and dust mites .. Patient has had exacerbation of her Crohn's disease and has been in hospitals since then. Onset/Duration: Sudden Severity: Moderate - Patient reports moderate to severe abdominal pain and also intolerance of food and nausea with vomiting. She vomited her pork chop from meal last night. She was just seen and evaluated for similar symptoms in [facility] on 28 August 2019. Brother diagnosed with IBS as well as mother. Her 5-year-old daughter with diagnosis of Crohn's. Patient has had fecal transplant from donor. Patient also received packed RBCs because of a 7.1 hemoglobin with her last admission at [facility]. Patient would prefer to stay here if she has to be admitted because he did not approve of raveler treatment there at [facility]. And also her sarthak is a marine at [employer] Pain Level: 4 Associated symptoms: Fever, Nausea, Vomiting Exacerbated by: Movement, Food Relieved by: Remaining still, Other - New foods Similar symptoms previously: Yes Recently seen / treated by doctor: Yes - Related Data Allergies/Adverse Reactions: aspirin Allergy (Verified 09/13/19 15:50) ciprofloxacin [From Cipro] Allergy (Verified 09/13/19 15:50) dicyclomine [From Bentyl] Allergy (Verified 09/24/19 12:16) haloperidol [From Haldol] Allergy (Verified 09/13/19 15:50) ketorolac [From Toradol] Allergy (Verified 09/13/19 15:50) NSAIDS (Non-Steroidal Anti-Inflamma Allergy (Verified 09/13/19 15:50) piperacillin [From Zosyn] Allergy (Verified 09/13/19 15:50) sulfamethoxazole [From Bactrim] Allergy (Verified 09/13/19 15:50) tazobactam [From Zosyn] Allergy (Verified 09/13/19 15:50) trimethoprim [From Bactrim] Allergy (Verified 09/13/19 15:50) Must be pre medicated proior to CT Allergy (Uncoded 09/13/19 15:50) Past Medical History - General Information source: Patient - Social History Smoking Status: Current Some Day Smoker Cigarette use (# per day): Yes - 5 Chew tobacco use (# tins/day): No Smoking Education Provided: Yes Frequency of alcohol use: Rare Drug Abuse: None Lives with: Family Family History: Reviewed & Not Pertinent Patient has suicidal ideation: No Patient has homicidal ideation: No - Medical History Medical History: Other Renal/ Medical History: Reports: Hx Kidney Stones, Other - Endometriosis GI Medical History: Reports: Hx Crohn's Disease Musculoskeletal Medical History: Reports Hx Musculoskeletal Trauma Infectious Medical History: Reports: Hx C-Diff Surgical Hx: Other Past Surgical History: Reports: Hx Abdominal Surgery Review of Systems - Review of Systems Constitutional: Chills, Fever, Weakness Gastrointestinal: Abdominal pain, Nausea, Vomiting, Blood streaked bowels, Poor appetite, Poor fluid intake, Rectal bleeding Physical Exam - Vital signs Vitals: Temp Pulse Resp BP Pulse Ox 98.9 F 94 16 114/66 100 09/24/19 11:45 09/24/19 11:45 09/24/19 11:45 09/24/19 11:45 09/24/19 11:45 Interpretation: Normal - General General appearance: Appears well, Alert - HEENT Head: Normocephalic, Atraumatic Eyes: Normal Pupils: PERRL - Respiratory Respiratory status: No respiratory distress Chest status: Nontender Breath sounds: Normal Chest palpation: Normal - Cardiovascular Rhythm: Regular Heart sounds: Normal auscultation Murmur: No - Abdominal Distension: No distension Bowel sounds: Hyperactive Tenderness: Tender, Guarding Organomegaly: No organomegaly - Back Back: Normal, Nontender - Extremities General upper extremity: Normal inspection, Nontender, Normal color, Normal ROM, Normal temperature General lower extremity: Normal inspection, Nontender, Normal color, Normal ROM, Normal temperature, Normal weight bearing. No: Arabella's sign - Neurological Neuro grossly intact: Yes Cognition: Normal Orientation: AAOx4 Madhuri Coma Scale Eye Opening: Spontaneous [place] Coma Scale Verbal: Oriented Madhuri Coma Scale Motor: Obeys Commands Madhuri Coma Scale Total: 15 Speech: Normal Motor strength normal: LUE, RUE, LLE, RLE Sensory: Normal - Psychological Associated symptoms: Normal affect, Normal mood - Skin Skin Temperature: Warm Skin Moisture: Dry Skin Color: Normal Course - Re-evaluation Re-evalutation: 09/24/19 18:05 Much improved ; she reports she used to be on Pentasa and also on Humira but this caused swelling of her hands and feet 09/24/19 18:21 - Vital Signs Vital signs: Temp Pulse Resp BP Pulse Ox 98.3 F 79 17 108/57 L 100 09/24/19 17:43 09/24/19 17:43 09/24/19 17:43 09/24/19 17:43 09/24/19 17:43 - Laboratory Result Diagrams: 09/24/19 16:15 09/24/19 16:15 Laboratory results interpreted by me: 09/24/19 09/24/19 09/24/19 12:35 16:15 16:15 MCH 26.4 L RDW 21.7 H Calcium 10.3 H Total Protein 9.0 H Albumin 5.4 H Urine Blood SMALL H Urine Nitrite (Reflex) POSITIVE H - Diagnostic Test Radiology reviewed: Reports reviewed Critical Care Note - Critical Care Note Total time excluding time spent on procedures (mins): 60 Discharge - Discharge Clinical Impression: Crohn's disease, Abdominal pain Condition: Good Disposition: HOME, SELF-CARE Admitting Provider: Personal doctor Unit Admitted: Medical Floor - not necessary for admission; labs and CT within normal limits Instructions: Abdominal Pain ([facility]) Additional Instructions: Follow-up with personal doctor and with raveler of choice.; Try boiling water sources to use and using applesauce with cinnamon Prescriptions: Mupirocin [Bactroban 2% Ointment 22 gm] 1 applic NASL HSP PRN #1 tube PRN Reason: Sucralfate [Carafate 1 gm Tablet] 1 gm PO BID PRN #60 tablet PRN Reason: Dexamethasone [Decadron] 4 mg PO BID 5 Days #10 tablet Chlorzoxazone [Parafon Forte Dsc 500 Mg Tablet] 500 mg PO BID PRN 10 Days #20 tablet PRN Reason: Forms: Return to Work Referrals: ALEXUS MYERS MD [NO LOCAL MD] - Follow up as needed
[2019-09-24] MEDS: NORMAL SALINE 1000 ML 1,000 ML IV PRN ×2 (16:14→18:01)
[2019-09-24 16:43] LABS: ABSOLUTE LYMPHOCYTES (AUTO) 1.7 10^3/uL (0.5-4.7); ABSOLUTE MONOCYTES (AUTO) 0.3 10^3/uL (0.1-1.4); ABSOLUTE NEUT (AUTO) 3.1 10^3/uL (1.7-8.2); BASOPHILS % (AUTO) 0.5 % (0-2); EOSINOPHILS % (AUTO) 0.6 % (0-6); HEMATOCRIT 37.6 % (36.0-47.0); HEMOGLOBIN 12.3 g/dL (12.0-15.5); LYMPHOCYTES % (AUTO) 33.4 % (13-45); MEAN CORPUSCULAR HEMOGLOBIN 26.4 pg (27.0-33.4); MEAN CORPUSCULAR HGB CONC 32.7 g/dL (32.0-36.0); MEAN CORPUSCULAR VOLUME 81 fl (80-97); MONOCYTES % (AUTO) 6.3 % (3-13); PLATELET COUNT 291 10^3/uL (150-450); RED BLOOD COUNT 4.66 10^6/uL (3.72-5.28); RED CELL DISTRIBUTION WIDTH 21.7 % (11.5-14.0); SEGMENTED NEUTROPHILS % (AUTO) 59.2 % (42-78); TOTAL CELLS COUNTED % (AUTO) 100 %; WHITE BLOOD COUNT 5.2 10^3/uL (4.0-10.5)
[2019-09-24] MEDS ORDERED: DIPHENHYDRAMINE HCL 50 MG/ML VIAL IV ONE ×2 (16:43→19:23)
[2019-09-24] MEDS ORDERED: FAMOTIDINE INJ/PF 20 MG/2 ML SDV IV ONE (16:43)
[2019-09-24 16:59] LABS: ALBUMIN 5.4 g/dL (3.5-5.0); ALKALINE PHOSPHATASE 87 U/L (38-126); ANION GAP 14 (5-19); ASPARTATE AMINO TRANSFERASE 24 U/L (14-36); BILIRUBIN,DIRECT 0.2 mg/dL (0.0-0.4); BILIRUBIN,TOTAL 0.4 mg/dL (0.2-1.3); BLOOD UREA NITROGEN 12 mg/dL (7-20); CALCIUM 10.3 mg/dL (8.4-10.2); CARBON DIOXIDE 25 mmol/L (22-30); CHLORIDE 104 mmol/L (98-107); GLUCOSE 92 mg/dL (75-110); POTASSIUM 4.6 mmol/L (3.6-5.0)
--- NOTE | 2019-09-24 18:00 | RADIOLOGY REPORT (SQ) ---
EXAM DESCRIPTION: CT ABD/PELVIS WITH IV ONLY COMPLETED DATE/TIME: 09/24/2019 5:46 pm REASON FOR STUDY: crohns with rectal bleed pain COMPARISON: None. TECHNIQUE: CT scan of the abdomen and pelvis performed using helical scanning technique with dynamic intravenous contrast injection. No oral contrast. Images reviewed with lung, soft tissue, and bone windows. Reconstructed coronal and sagittal MPR images reviewed. Delayed images for evaluation of the urinary system also acquired. All images stored on PACS. All CT scanners at this facility use dose modulation, iterative reconstruction, and/or weight based d osing when appropriate to reduce radiation dose to as low as reasonably achievable (ALARA). [facility]: Dose Right [facility]: CareDose [facility]: Dose Right [facility]: Teradose 4D [facility]: Where I've Been CONTRAST TYPE AND DOSE: See chart RENAL FUNCTION: None required. The patient is less than 50 years old. RADIATION DOSE: CT Rad equipment meets quality standard of care and radiation dose reduction techniq ues were employed. CTDIvol: 3.8 - 3.8 mGy. DLP: 406 mGy-cm.. LIMITATIONS: None. FINDINGS: LOWER CHEST: No acute process. No significant finding. LIVER: Normal size. No masses. No dilated ducts. SPLEEN: Normal size. No focal lesions. PANCREAS: No masses. No significant calcifications. No adjacent inflammation or peripancreatic fluid collections. Pancreatic duct not dilated. GALLBLADDER: Prior cholecystectomy. ADRENAL GLANDS: No significant masses or asymmetry. RIGHT KIDNEY AND URETER: No solid masses. No significant calcifications. No hydronephrosis or hyd roureter. LEFT KIDNEY AND URETER: No solid masses. No significant calcifications. No hydronephrosis or hydr oureter. AORTA AND VESSELS: No aneurysm. No dissection. Renal arteries, SMA, celiac without stenosis. RETROPERITONEUM: No retroperitoneal adenopathy, hemorrhage or masses. BOWEL AND PERITONEAL CAVITY: No masses or inflammatory changes. No free fluid or peritoneal masses. APPENDIX: Not visualized. PELVIS: Mildly distended bladder. Right ovarian cystic lesion measuring 2.2 cm, likely functional ov yudith cyst. No free fluid. No discrete adenopathy. ABDOMINAL WALL: No masses. No hernias. BONES: No acute bony abnormality. No suspicious osseous lesions. OTHER: No other significant finding. IMPRESSION: No evidence of acute intra-abdominal/pelvic process. No findings to explain patient's sy mptoms. TECHNICAL DOCUMENTATION: JOB ID: [id number] Quality ID # [id number]: Final reports with documentation of one or more dose reduction techniques (e.g., Au tomated exposure control, adjustment of the mA and/or kV according to patient size, use of iterative reconstruction technique) 2010 [employer]- All Rights Reserved Reading location - IP/workstation name: [id number]
[2019-09-24 20:18] VITALS: BP 112/60
== END 2019-09-24 20:18 | disposition home or self-care (01) ==
LOC: ER 11:42
DX: K50.90 Crohn's disease, unspecified, without complications (principal); R10.9 Unspecified abdominal pain; K62.5 Hemorrhage of anus and rectum; R50.9 Fever, unspecified; R11.2 Nausea with vomiting, unspecified; F17.210 Nicotine dependence, cigarettes, uncomplicated; Z88.6 Allergy status to analgesic agent; Z88.3 Allergy status to other anti-infective agents; Z87.442 Personal history of urinary calculi
CPT/HCPCS: 96376; 99285; 96361; 96374; 96375; 36415; 85025; 80053; 81001; 74177; J1200; J2270; J2550; J7030; S0028; J1100

== ENCOUNTER 2019-10-12 11:28 | Emergency (ER) | payer MEDICAID ==
[2019-10-12] MEDS ORDERED: MORPHINE SULFATE 10 MG/ML INJ IV ONE (11:52)
--- NOTE | 2019-10-12 11:53 | ER Document Report ---
ED Medical Screen (RME) - General Chief Complaint: Flank Pain Stated Complaint: FLANK PAIN,VOMITING Time Seen by Provider: 10/12/19 11:47 Mode of Arrival: Ambulatory Information source: Patient Notes: Patient presents complaining of difficulty voiding for the past week. Patient states she has had low back pain and lower pelvic pain. Patient reports nausea vomiting diarrhea. Patient reports fever of 102.8 at home. Patient also complains of peripheral edema. Patient reports a history of celiac disease, kidney stones as well as Crohn's disease. Patient has had a history of previous renal stents, tubal ligation, appendectomy, cholecystectomy. I have greeted and performed a rapid initial assessment of this patient. A comprehensive ED assessment and evaluation of the patient, analysis of test results and completion of the medical decision making process will be conducted by additional ED providers. TRAVEL OUTSIDE OF THE [place] IN LAST 30 DAYS: No - Related Data Allergies/Adverse Reactions: aspirin Allergy (Verified 10/12/19 11:49) ciprofloxacin [From Cipro] Allergy (Verified 10/12/19 11:49) dicyclomine [From Bentyl] Allergy (Verified 10/12/19 11:49) haloperidol [From Haldol] Allergy (Verified 10/12/19 11:49) ketorolac [From Toradol] Allergy (Verified 10/12/19 11:49) NSAIDS (Non-Steroidal Anti-Inflamma Allergy (Verified 10/12/19 11:49) piperacillin [From Zosyn] Allergy (Verified 10/12/19 11:49) sulfamethoxazole [From Bactrim] Allergy (Verified 10/12/19 11:49) tazobactam [From Zosyn] Allergy (Verified 10/12/19 11:49) trimethoprim [From Bactrim] Allergy (Verified 10/12/19 11:49) Must be pre medicated proior to CT Allergy (Uncoded 10/12/19 11:49) Past Medical History Renal/ Medical History: Reports: Hx Kidney Stones GI Medical History: Reports: Hx Crohn's Disease Musculoskeltal Medical History: Reports Hx Musculoskeletal Trauma Infectious Medical History: Reports: Hx C-Diff Past Surgical History: Reports: Hx Abdominal Surgery Physical Exam - Vital signs Vitals: Temp Pulse Resp BP Pulse Ox 98.0 F 65 18 117/73 100 10/12/19 11:36 10/12/19 11:36 10/12/19 11:36 10/12/19 11:36 10/12/19 11:36 - Abdominal Tenderness: Tender - Lower abdomen Course - Vital Signs Vital signs: Temp Pulse Resp BP Pulse Ox 98.0 F 65 18 117/73 100 10/12/19 11:36 10/12/19 11:36 10/12/19 11:36 10/12/19 11:36 10/12/19 11:36
[2019-10-12 12:29] LABS: APPEARANCE,URINE SLIGHTLY-CLOUDY; BILIRUBIN,URINE NEGATIVE (NEGATIVE); COLOR,URINE YELLOW; GLUCOSE, URINE NEGATIVE (NEGATIVE); KETONES,URINE NEGATIVE (NEGATIVE); LEUKOCYTE ESTERASE,URINE SMALL (NEGATIVE); NITRITE,URINE NEGATIVE (NEGATIVE); PROTEIN,URINE NEGATIVE (NEGATIVE); URINE SPECIFIC GRAVITY 1.014; UROBILINOGEN,URINE NEGATIVE mg/dL (<2.0)
[2019-10-12 13:02] LABS: ALBUMIN 4.5 g/dL (3.5-5.0); ALKALINE PHOSPHATASE 58 U/L (38-126); ANION GAP 13 (5-19); ASPARTATE AMINO TRANSFERASE 23 U/L (14-36); BILIRUBIN,DIRECT 0.3 mg/dL (0.0-0.4); BILIRUBIN,TOTAL 0.5 mg/dL (0.2-1.3); BLOOD UREA NITROGEN 13 mg/dL (7-20); CALCIUM 9.8 mg/dL (8.4-10.2); CARBON DIOXIDE 20 mmol/L (22-30); CHLORIDE 106 mmol/L (98-107); GLUCOSE 90 mg/dL (75-110); POTASSIUM 4.4 mmol/L (3.6-5.0); TOTAL PROTEIN 7.6 g/dL (6.3-8.2)
[2019-10-12 13:55] LABS: ABSOLUTE LYMPHOCYTES (AUTO) 1.1 10^3/uL (0.5-4.7); ABSOLUTE MONOCYTES (AUTO) 0.2 10^3/uL (0.1-1.4); ABSOLUTE NEUT (AUTO) 1.8 10^3/uL (1.7-8.2); BASOPHILS % (AUTO) 1.3 % (0-2); EOSINOPHILS % (AUTO) 1.1 % (0-6); HEMOGLOBIN 10.5 g/dL (12.0-15.5); LYMPHOCYTES % (AUTO) 33.7 % (13-45); MEAN CORPUSCULAR HEMOGLOBIN 26.8 pg (27.0-33.4); MEAN CORPUSCULAR HGB CONC 32.9 g/dL (32.0-36.0); MEAN CORPUSCULAR VOLUME 81 fl (80-97); MONOCYTES % (AUTO) 6.6 % (3-13); PLATELET COUNT 294 10^3/uL (150-450); RED BLOOD COUNT 3.93 10^6/uL (3.72-5.28); RED CELL DISTRIBUTION WIDTH 20.4 % (11.5-14.0); SEGMENTED NEUTROPHILS % (AUTO) 57.3 % (42-78); TOTAL CELLS COUNTED % (AUTO) 100 %; WHITE BLOOD COUNT 3.2 10^3/uL (4.0-10.5)
[2019-10-12] MEDS ORDERED: DIPHENHYDRAMINE HCL 50 MG/ML VIAL IV ONE (14:01)
--- NOTE | 2019-10-12 14:46 | ER Document Report ---
ED General - General Chief Complaint: Abdominal Pain Stated Complaint: FLANK PAIN,VOMITING Time Seen by Provider: 10/12/19 11:47 Primary Care Provider: HAYDE LEOS JR, MD [Primary Care Provider] - Follow up tomorrow Mode of Arrival: Ambulatory Notes: 28-year-old female with history of Crohn's and celiac disease presents for generalized abdominal pain, nausea, diarrhea, flank pain. Patient states this feels like a flare of her Crohn's. Patient also has a history of kidney stones but states that the flank pain does not feel like that. Patient states she was worried about her hemoglobin level and requiring a transfusion because she has required 1 in the past. Patient states she is gotten azathioprine in the past and requests a prescription for same. Patient is also requesting prescription for Phenergan p.o. Patient denies any hematuria. TRAVEL OUTSIDE OF THE [place] IN LAST 30 DAYS: No - Related Data Allergies/Adverse Reactions: aspirin Allergy (Verified 10/12/19 11:49) ciprofloxacin [From Cipro] Allergy (Verified 10/12/19 11:49) dicyclomine [From Bentyl] Allergy (Verified 10/12/19 11:49) haloperidol [From Haldol] Allergy (Verified 10/12/19 11:49) ketorolac [From Toradol] Allergy (Verified 10/12/19 11:49) NSAIDS (Non-Steroidal Anti-Inflamma Allergy (Verified 10/12/19 11:49) piperacillin [From Zosyn] Allergy (Verified 10/12/19 11:49) sulfamethoxazole [From Bactrim] Allergy (Verified 10/12/19 11:49) tazobactam [From Zosyn] Allergy (Verified 10/12/19 11:49) trimethoprim [From Bactrim] Allergy (Verified 10/12/19 11:49) Must be pre medicated proior to CT Allergy (Uncoded 10/12/19 11:49) Past Medical History - General Information source: Patient - Social History Smoking Status: Never Smoker Chew tobacco use (# tins/day): No Frequency of alcohol use: None Drug Abuse: None Family History: Reviewed & Not Pertinent Patient has suicidal ideation: No Patient has homicidal ideation: No Renal/ Medical History: Reports: Hx Kidney Stones GI Medical History: Reports: Hx Crohn's Disease Musculoskeletal Medical History: Reports Hx Musculoskeletal Trauma Infectious Medical History: Reports: Hx C-Diff Past Surgical History: Reports: Hx Abdominal Surgery, Hx Appendectomy, Hx Section, Hx Cholecystectomy, Hx Tubal Ligation Review of Systems - Review of Systems Notes: Constitutional: Negative for fever. HENT: Negative for sore throat. Eyes: Negative for visual changes. Cardiovascular: Negative for chest pain. Respiratory: Negative for shortness of breath. Gastrointestinal: Positive for abdominal pain, vomiting or diarrhea. Genitourinary: Negative for dysuria. Musculoskeletal: Negative for back pain. Skin: Negative for rash. Neurological: Negative for headaches, weakness or numbness. 10 point ROS negative except as marked above and in HPI. Physical Exam - Vital signs Vitals: Temp Pulse Resp BP Pulse Ox 98.0 F 65 18 117/73 100 10/12/19 11:36 10/12/19 11:36 10/12/19 11:36 10/12/19 11:36 10/12/19 11:36 - Notes Notes: GENERAL: Well-appearing, well-nourished and in no acute distress. HEAD: Atraumatic, normocephalic. EYES: Extraocular movements intact, sclera anicteric, conjunctiva are normal. NECK: Normal range of motion, supple without lymphadenopathy or JVD. LUNGS: Breath sounds clear to auscultation bilaterally and equal. No wheezes rales or rhonchi. HEART: Regular rate and rhythm without murmurs, rubs or gallops. ABDOMEN: Soft, globally tender. No guarding, no rebound. No masses appreciated. EXTREMITIES: Normal range of motion, no pitting or edema. No clubbing or cyanosis. NEUROLOGICAL: Cranial nerves II through XII grossly intact. Normal speech, normal gait. PSYCH: Normal mood, normal affect. SKIN: Warm, Dry, normal turgor, no rashes or lesions noted. Course - Re-evaluation Re-evalutation: 10/12/19 nontoxic, well-appearing 28-year-old female presents with Crohn's flare. Patient states she has required blood transfusions in the past due to her hemoglobin dropping and was also concerned about this. Abdomen soft diffusely tender with no guarding or rebound. Nonsurgical abdomen. Patient was given morphine however had a rash develop so Benadryl was given. CT abdomen/pelvis with IV contrast was also ordered however patient states she has had a lot of CTs and would rather try steroids, azathioprine, and Benadryl. Patient states she has an appointment with her GI doctor on the third. Patient states if she is not improving in 48 hours she will return to the ER and have a CT done then. Patient also states she has a history of C. difficile however states she does not have the odor that she usually does when she has C. difficile. Patient states her symptoms are consistent with a Crohn's flare. Patient given prescriptions and very strict return precautions were discussed. Patient also given close follow-up with PCP. Patient voices understanding and agrees with plan of care. - Vital Signs Vital signs: Temp Pulse Resp BP Pulse Ox 98.5 F 57 L 16 106/55 L 100 10/12/19 14:48 10/12/19 14:48 10/12/19 14:48 10/12/19 14:48 10/12/19 14:48 - Laboratory Result Diagrams: 10/12/19 13:30 10/12/19 12:20 Laboratory results interpreted by me: 10/12/19 10/12/19 10/12/19 11:56 12:20 13:30 WBC 3.2 L Hgb 10.5 L Hct 32.0 L MCH 26.8 L RDW 20.4 H Carbon Dioxide 20 L Urine Blood SMALL H Ur Leukocyte Esterase SMALL H Discharge - Discharge Clinical Impression: Nausea, vomiting, and diarrhea Crohn disease Qualifiers: Gastrointestinal tract location: unspecified location Digestive disease complication type: without complication Qualified Code(s): K50.90 - Crohn's disease, unspecified, without complications Abdominal pain Qualifiers: Abdominal location: generalized Qualified Code(s): R10.84 - Generalized abdominal pain Condition: Stable Disposition: HOME, SELF-CARE Instructions: Abdominal Pain ([facility]) Additional Instructions: You were offered a CT scan today however you declined. Your lab work shows a hemoglobin of 10.5. Please take medications as prescribed. Please follow-up with your GI doctor as scheduled. Please follow-up with your primary care doctor in the next 1 to 3 days. Return immediately to the ER if you start having any worsening symptoms, including worsening abdominal pain, vomiting not controlled by medication, fever, blood in your stool, worsening diarrhea, inability to urinate, vomiting up blood, dizziness chest pain, shortness of breath, or any other symptoms that are concerning to you. Prescriptions: Azathioprine [Azasan 100 mg Tablet] 100 mg PO DAILY #14 tablet Prednisone [Deltasone] 20 mg PO BID #10 tablet Promethazine HCl [Phenergan 25 mg Tablet] 1 - 2 tab PO Q6H PRN #15 tablet PRN Reason: Referrals: HAYDE LEOS JR, MD [Primary Care Provider] - Follow up tomorrow
[2019-10-12] MEDS ORDERED: PREDNISONE 20 MG TABLET PO ONE (14:49)
[2019-10-12 14:50] VITALS: BP 106/55
== END 2019-10-12 15:29 | disposition home or self-care (01) ==
LOC: ER 11:28
DX: K50.90 Crohn's disease, unspecified, without complications (principal); R10.84 Generalized abdominal pain; R10.817 Generalized abdominal tenderness; R11.2 Nausea with vomiting, unspecified; R19.7 Diarrhea, unspecified; Z88.8 Allergy status to other drugs, medicaments and biological substances; Z88.1 Allergy status to other antibiotic agents; Z88.0 Allergy status to penicillin
CPT/HCPCS: 99284; 96374; 96375; 36415; 87086; 83690; 84703; 85025; 80053; 81001; J1200; J2270; J7512

== ENCOUNTER 2019-10-15 16:25 | Emergency (ER) | payer MEDICAID ==
[2019-10-15 16:59] VITALS: BP 120/70
[2019-10-15] MEDS ORDERED: NORMAL SALINE 1000 ML 1,000 ML IV ONE (17:56)
--- NOTE | 2019-10-15 17:58 | ER Document Report ---
ED Medical Screen (RME) - General Chief Complaint: Abdominal Pain Stated Complaint: SKIN SORE/LEFT THIGH Time Seen by Provider: 10/15/19 17:53 Primary Care Provider: HAYDE LEOS JR, MD [Primary Care Provider] - Follow up as needed Mode of Arrival: Ambulatory Information source: Patient Notes: 28-year-old female presents with excessive diarrhea. Reports history of C. difficile. Also reports history of Crohn's. Reports she was recently treated for of A staph infection with clindamycin. She started having diarrhea. She reports her stools are bloody and her intestines feels like it is going to fall out. No fever. I have greeted and performed a rapid initial assessment of this patient. A comprehensive ED assessment and evaluation of the patient, analysis of test results and completion of the medical decision making process will be conducted by additional ED providers. TRAVEL OUTSIDE OF THE [place] IN LAST 30 DAYS: No - Related Data Allergies/Adverse Reactions: aspirin Allergy (Verified 10/15/19 17:45) ciprofloxacin [From Cipro] Allergy (Verified 10/15/19 17:45) dicyclomine [From Bentyl] Allergy (Verified 10/15/19 17:45) haloperidol [From Haldol] Allergy (Verified 10/15/19 17:45) ketorolac [From Toradol] Allergy (Verified 10/15/19 17:45) NSAIDS (Non-Steroidal Anti-Inflamma Allergy (Verified 10/15/19 17:45) piperacillin [From Zosyn] Allergy (Verified 10/15/19 17:45) sulfamethoxazole [From Bactrim] Allergy (Verified 10/15/19 17:45) tazobactam [From Zosyn] Allergy (Verified 10/15/19 17:45) trimethoprim [From Bactrim] Allergy (Verified 10/15/19 17:45) Must be pre medicated proior to CT Allergy (Uncoded 10/15/19 17:45) Past Medical History - Social History Chew tobacco use (# tins/day): No Frequency of alcohol use: None Drug Abuse: None Renal/ Medical History: Reports: Hx Kidney Stones GI Medical History: Reports: Hx Crohn's Disease Musculoskeltal Medical History: Reports Hx Musculoskeletal Trauma Infectious Medical History: Reports: Hx C-Diff Past Surgical History: Reports: Hx Abdominal Surgery, Hx Appendectomy, Hx Section, Hx Cholecystectomy, Hx Tubal Ligation Physical Exam - Vital signs Vitals: Temp Pulse Resp BP Pulse Ox 98.6 F 86 18 120/70 100 10/15/19 16:58 10/15/19 16:58 10/15/19 16:58 10/15/19 16:58 10/15/19 16:58 Course - Vital Signs Vital signs: Temp Pulse Resp BP Pulse Ox 98.6 F 86 18 120/70 100 10/15/19 16:58 10/15/19 16:58 10/15/19 16:58 10/15/19 16:58 10/15/19 16:58 Doctor's Discharge - Discharge Referrals: DAFNE SOUSA,HAYDE Johnson MD [Primary Care Provider] - Follow up as needed
== END 2019-10-15 20:21 | disposition left against medical advice (07) ==
LOC: ER 16:25
DX: R19.7 Diarrhea, unspecified (principal); K92.1 Melena; Z88.8 Allergy status to other drugs, medicaments and biological substances; Z88.1 Allergy status to other antibiotic agents; Z53.20 Procedure and treatment not carried out because of patient's decision for unspecified reasons
CPT/HCPCS: 99281

== ENCOUNTER 2019-11-01 16:20 | Emergency (ER) | payer MEDICAID ==
--- NOTE | 2019-11-01 17:40 | ER Document Report ---
ED Medical Screen (RME) - General Chief Complaint: Abdominal Pain Stated Complaint: HEAD CONGESTION/ABDOMINAL PAIN Time Seen by Provider: 11/01/19 17:34 Primary Care Provider: HAYDE LEOS JR, MD [Primary Care Provider] - Follow up as needed Mode of Arrival: Ambulatory Information source: Patient Notes: 28-year-old female with history of Crohn's endometriosis and ovarian cyst presents emergency department with complaints of left lower quad pain reports she believes her cyst may have ruptured. She also complains of vaginal bleeding. Reports for the past 5 days she has had fever cough nasal congestion. She was seen by her [employer]K [employer]EL[employer] 3 days ago and an ultrasound was done which revealed an ovarian cyst. She has had them rupture in the past. She reports she is having pain now with vaginal bleeding. She reports is not time for her menses. Patient reports she has been vomiting for the past 2 days but recently took Phenergan suppository for this. Declines antinausea at this time. I have greeted and performed a rapid initial assessment of this patient. A comprehensive ED assessment and evaluation of the patient, analysis of test results and completion of the medical decision making process will be conducted by additional ED providers. TRAVEL OUTSIDE OF THE [place] IN LAST 30 DAYS: No - Related Data Allergies/Adverse Reactions: aspirin Allergy (Verified 11/01/19 17:32) ciprofloxacin [From Cipro] Allergy (Verified 11/01/19 17:32) dicyclomine [From Bentyl] Allergy (Verified 11/01/19 17:32) haloperidol [From Haldol] Allergy (Verified 11/01/19 17:32) ketorolac [From Toradol] Allergy (Verified 11/01/19 17:32) NSAIDS (Non-Steroidal Anti-Inflamma Allergy (Verified 11/01/19 17:32) piperacillin [From Zosyn] Allergy (Verified 11/01/19 17:32) sulfamethoxazole [From Bactrim] Allergy (Verified 11/01/19 17:32) tazobactam [From Zosyn] Allergy (Verified 11/01/19 17:32) trimethoprim [From Bactrim] Allergy (Verified 11/01/19 17:32) Must be pre medicated proior to CT Allergy (Uncoded 11/01/19 17:32) Past Medical History - Social History Chew tobacco use (# tins/day): No Frequency of alcohol use: Occasional Drug Abuse: Marijuana Renal/ Medical History: Reports: Hx Kidney Stones GI Medical History: Reports: Hx Crohn's Disease Musculoskeltal Medical History: Reports Hx Musculoskeletal Trauma Infectious Medical History: Reports: Hx C-Diff Past Surgical History: Reports: Hx Abdominal Surgery, Hx Appendectomy, Hx Sebastian an Section, Hx Cholecystectomy, Hx Tubal Ligation Physical Exam - Vital signs Vitals: Temp Pulse Resp BP Pulse Ox 98.9 F 95 20 124/74 100 11/01/19 16:24 11/01/19 16:24 11/01/19 16:24 11/01/19 16:24 11/01/19 16:24 Course - Vital Signs Vital signs: Temp Pulse Resp BP Pulse Ox 98.9 F 95 20 124/74 100 11/01/19 16:24 11/01/19 16:24 11/01/19 16:24 11/01/19 16:24 11/01/19 16:24 Doctor's Discharge - Discharge Referrals: HAYDE LEOS JR, MD [Primary Care Provider] - Follow up as needed
--- NOTE | 2019-11-01 18:00 | RADIOLOGY REPORT (SQ) ---
EXAM DESCRIPTION: CHEST 2 VIEWS COMPLETED DATE/TIME: 11/01/2019 5:51 pm REASON FOR STUDY: cough fever COMPARISON: 08/14/2019. EXAM PARAMETERS: NUMBER OF VIEWS: two views TECHNIQUE: Digital Frontal and Lateral radiographic views of the chest acquired. RADIATION DOSE: NA LIMITATIONS: none FINDINGS: LUNGS AND PLEURA: No opacities, masses or pneumothorax. No pleural effusion. MEDIASTINUM AND HILAR STRUCTURES: No masses or contour abnormalities. HEART AND VASCULAR STRUCTURES: Heart normal size. No evidence for failure. BONES: No acute findings. HARDWARE: None in the chest. Clips in the upper abdomen. OTHER: No other significant finding. IMPRESSION: NO ACUTE RADIOGRAPHIC FINDING IN THE CHEST. TECHNICAL DOCUMENTATION: JOB ID: [id number] 2010 [employer]- All Rights Reserved Reading location - IP/workstation name: [email or web address]
[2019-11-01] MEDS ORDERED: NORMAL SALINE 1000 ML 1,000 ML IV ONE (18:19)
[2019-11-01 18:38] LABS: A TYPE INFLUENZA AG NEGATIVE (NEGATIVE); B INFLUENZA AG NEGATIVE (NEGATIVE)
--- NOTE | 2019-11-01 19:11 | RADIOLOGY REPORT (SQ) ---
EXAM DESCRIPTION: U/S NON-OB PELVIS TV W/O DOP COMPLETED DATE/TIME: 11/01/2019 6:59 pm REASON FOR STUDY: hx ovarian cysts, endometreosis, pain COMPARISON: None. TECHNIQUE: Dynamic and static grayscale images acquired of the pelvis via transvaginal approach and recorded on PACS. Additional selected color Doppler and spectral images recorded. LIMITATIONS: Limited due to bowel gas. FINDINGS: UTERUS: Contour normal. Possible 1.4 cm fibroid. ENDOMETRIAL STRIPE: Fluid collection near the fundus, measuring 12 mm. No masses. CERVIX: Multiple nabothian cysts. RIGHT OVARY AND DOPPLER: Obscured by bowel gas. LEFT OVARY AND DOPPLER: Obscured by bowel gas. FREE FLUID: None noted. OTHER: No other significant finding. MEASUREMENTS: UTERUS: 4.5 x 6.2 x 8.4 cm. ENDOMETRIAL STRIPE: 3 mm. RIGHT OVARY: Not visualized. LEFT OVARY: Not visualized. IMPRESSION: 1. FLUID COLLECTION IN THE ENDOMETRIAL CAVITY NEAR THE FUNDUS. POSSIBLE SMALL UTERINE FIBROID. 2. UNABLE TO VISUALIZE THE OVARIES TO OVERLYING BOWEL GAS. TECHNICAL DOCUMENTATION: JOB ID: [id number] 2010 [employer]- All Rights Reserved Rev-02/04 Reading location - IP/workstation name: [email or web address]
[2019-11-01 19:42] LABS: APPEARANCE,URINE CLOUDY; BILIRUBIN,URINE NEGATIVE (NEGATIVE); COLOR,URINE YELLOW; GLUCOSE, URINE NEGATIVE (NEGATIVE); KETONES,URINE TRACE mg/dL (NEGATIVE); LEUKOCYTE ESTERASE,URINE MODERATE (NEGATIVE); NITRITE,URINE NEGATIVE (NEGATIVE); PROTEIN,URINE 30 mg/dL (NEGATIVE); URINE SPECIFIC GRAVITY 1.021; UROBILINOGEN,URINE NEGATIVE mg/dL (<2.0)
[2019-11-01] MEDS ORDERED: ONDANSETRON HCL INJ/PF 4 MG/2 ML SDV IV ONE (20:45)
[2019-11-01] MEDS ORDERED: CETIRIZINE 10 MG TABLET PO ONE (20:45)
[2019-11-01] MEDS ORDERED: MORPHINE SULFATE 10 MG/ML INJ IV ONE (20:53)
--- NOTE | 2019-11-01 20:56 | ER Document Report ---
ED GI/ - General Chief Complaint: Abdominal Pain Stated Complaint: HEAD CONGESTION/ABDOMINAL PAIN Time Seen by Provider: 11/01/19 17:34 Primary Care Provider: [facility] [Provider Group] - Follow up as needed HAYDE LEOS JR, MD [Primary Care Provider] - Follow up in 3-5 days Mode of Arrival: Ambulatory Notes: Patient is a 28-year-old female who presents to the emergency department with a chief complaint of left lower abdominal pain. States she has associated nausea and vomiting for the past 2 days. She also had some vaginal bleeding. Patient states that she has history of an ovarian cyst and she states that she feels like it ruptured. She states that she has had nasal congestion for the past 2 days and ended up with a fever today. She has been taking Tylenol, but has not had any relief of her pain. Patient also has history of Crohn's disease and endometriosis. She is having some abdominal bleeding. She took some Phenergan at home, but has not had any relief of her vomiting. TRAVEL OUTSIDE OF THE [place] IN LAST 30 DAYS: No - Related Data Allergies/Adverse Reactions: aspirin Allergy (Verified 11/01/19 17:32) ciprofloxacin [From Cipro] Allergy (Verified 11/01/19 17:32) dicyclomine [From Bentyl] Allergy (Verified 11/01/19 17:32) haloperidol [From Haldol] Allergy (Verified 11/01/19 17:32) ketorolac [From Toradol] Allergy (Verified 11/01/19 17:32) NSAIDS (Non-Steroidal Anti-Inflamma Allergy (Verified 11/01/19 17:32) piperacillin [From Zosyn] Allergy (Verified 11/01/19 17:32) sulfamethoxazole [From Bactrim] Allergy (Verified 11/01/19 17:32) tazobactam [From Zosyn] Allergy (Verified 11/01/19 17:32) trimethoprim [From Bactrim] Allergy (Verified 11/01/19 17:32) Must be pre medicated proior to CT Allergy (Uncoded 11/01/19 17:32) Past Medical History - General Information source: Patient - Social History Smoking Status: Unknown if Ever Smoked Chew tobacco use (# tins/day): No Frequency of alcohol use: Occasional Drug Abuse: Marijuana Family History: Reviewed & Not Pertinent Patient has suicidal ideation: No Patient has homicidal ideation: No Renal/ Medical History: Reports: Hx Kidney Stones GI Medical History: Reports: Hx Crohn's Disease Musculoskeletal Medical History: Reports Hx Musculoskeletal Trauma Infectious Medical History: Reports: Hx C-Diff Past Surgical History: Reports: Hx Abdominal Surgery, Hx Appendectomy, Hx Section, Hx Cholecystectomy, Hx Tubal Ligation Review of Systems - Review of Systems Notes: REVIEW OF SYSTEMS: CONSTITUTIONAL : Denies recent illness. Denies recent unintentional weight loss. Denies fever, chills, or sweats. EENT: See HPI. CARDIOVASCULAR: Denies chest pain. RESPIRATORY: Denies shortness of breath, cough, congestion, difficulty breathing, or wheezing. GASTROINTESTINAL: See HPI. GENITOURINARY: Denies difficulty urinating, burning, blood in urine, urgency or frequency. MUSCULOSKELETAL: Denies neck and back pain. Denies joint pain or swelling. SKIN: Denies rash, itchiness, or lesions HEMATOLOGIC : Denies easy bruising or bleeding. LYMPHATIC: Denies swollen, painful, enlarged glands. NEUROLOGICAL: Denies no numbness or tingling denies weakness. Denies headache. Denies altered mental status. Denies alteration in speech. PSYCHIATRIC: Denies stress, anxiety, alteration in sleep patterns, or depression. All other systems reviewed and negative. Physical Exam - Vital signs Vitals: Temp Pulse Resp BP Pulse Ox 98.9 F 95 20 124/74 100 11/01/19 16:24 11/01/19 16:24 11/01/19 16:24 11/01/19 16:24 11/01/19 16:24 - Notes Notes: PHYSICAL EXAMINATION: GENERAL: Appears well, healthy, well-nourished, no acute distress. HEAD: Normocephalic, atraumatic. EYES: PERRL, conjunctiva normal, all extraocular movements intact, sclera nonicteric ENT: Moist mucous membranes. NECK: Supple, no noticeable swelling, redness, rash. Normal range of motion. LUNGS: Equal breath sounds bilaterally and clear to auscultation. No wheezes rales or rhonchi. CARDIOVASCULAR: S1-S2, regular rate, regular rhythm. Radial pulses 2+, normal. ABDOMEN: Normoactive bowel sounds. Soft, tender left lower quadrant, no guarding, no rebound tenderness, and no masses palpated. EXTREMITIES: Normal strength and range of motion, no pitting or edema. No cyanosis. NEUROLOGICAL: Moves all extremities upon command. Strength 5/5 in all extremities. PSYCH: Normal mood, normal affect. SKIN: Warm, dry. No rash, lesions, ulcerations noted. Normal skin turgor. Course - Re-evaluation Re-evalutation: 11/01/19 21:54 Patient's influenza screen and chest x-ray are all negative. She does have a moderate amount of leukocytes in her urine. Awaiting blood results. Staff had a hard time drawing blood, therefore in lab is drawing her blood. She has had 2 CT scans of her abdomen pelvis in the last 6 months. I discussed risks and benefits of possibly rescanning her and she has decided to not have another CT scan done. Transvaginal ultrasound shows obstructed view due to gas.She also has a possible 1.4 cm fibroid. After I discussed these findings with the patient, she states that she has had an ovarian a partial ovarian torsion be fore, but states that this does not feel like it. She states that it feels like a ruptured ovarian cyst. 11/01/19 22:56 Patient states that she is feeling better. States the cetirizine has helped. At this time, I will treat her Crohn's disease. She received a gram of Rocephin. She will be started on Flagyl and prednisone. She will also be placed on doxycycline. She will follow-up with OB and her primary care provider. Follow-up precautions were given. Verbal discharge instructions were given to the patient. They verbalized understanding. They are stable for discharge. - Vital Signs Vital signs: Temp Pulse Resp BP Pulse Ox 97.6 F 80 19 104/60 100 11/01/19 23:33 11/01/19 23:33 11/01/19 23:33 11/01/19 23:33 11/01/19 23:33 - Laboratory Result Diagrams: 11/01/19 21:50 11/01/19 21:50 Laboratory results interpreted by me: 11/01/19 11/01/19 11/01/19 19:21 21:50 21:50 WBC 3.9 L RBC 3.53 L Hgb 9.3 L Hct 28.5 L MCH 26.3 L RDW 16.8 H Chloride 109 H Carbon Dioxide 20 L Creatinine 0.50 L Urine Protein 30 H Urine Ketones TRACE H Urine Blood LARGE H Ur Leukocyte Esterase MODERATE H Discharge - Discharge Clinical Impression: Abdominal pain Qualifiers: Abdominal location: left lower quadrant Qualified Code(s): R10.32 - Left lower quadrant pain Urinary tract infection Qualifiers: Urinary tract infection type: acute cystitis Hematuria presence: with hematuria Qualified Code(s): N30.01 - Acute cystitis with hematuria Crohn's disease Qualifiers: Gastrointestinal tract location: unspecified location Digestive disease complication type: unspecified complication Qualified Code(s): K50.919 - Crohn's disease, unspecified, with unspecified complications Condition: Stable Disposition: HOME, SELF-CARE Instructions: Urinary Tract Infection ([facility]) Additional Instructions: You were seen today in the emergency department for abdominal pain. Your pain is most likely due to your Crohn's disease. You are being placed on Flagyl. You also have a urinary tract infection. You are being placed on doxycycline. Please follow-up with OB and with your primary care provider in regards to this visit. Prescriptions: Prednisone [Deltasone 20 mg Tablet] 2 tab PO DAILY 5 Days #10 tablet Doxycycline Hyclate 100 mg PO BID #28 tablet. Metronidazole [Flagyl 500 mg Tablet] 500 mg PO Q6H #28 tablet Referrals: HAYDE LEOS JR, MD [Primary Care Provider] - Follow up in 3-5 days [facility] [Provider Group] - Follow up as needed
[2019-11-01] MEDS ORDERED: CEFTRIAXONE 1 GM/D5W RTU 50 ML IV ONE (20:57)
[2019-11-01] MEDS ORDERED: CEFTRIAXONE INJ 1000 MG VIAL IV ONE (21:01)
[2019-11-01] MEDS ORDERED: DIPHENHYDRAMINE HCL 50 MG/ML VIAL IV ONE (21:20)
[2019-11-01] MEDS ORDERED: CEFTRIAXONE 1 GM/D5W RTU 1 GM/50 ML RTUPB IV ONE (22:00)
[2019-11-01 22:07] LABS: ABSOLUTE EOSINOPHILS # (AUTO) 0.1 10^3/uL (0.0-0.6); ABSOLUTE LYMPHOCYTES (AUTO) 0.9 10^3/uL (0.5-4.7); ABSOLUTE MONOCYTES (AUTO) 0.3 10^3/uL (0.1-1.4); ABSOLUTE NEUT (AUTO) 2.5 10^3/uL (1.7-8.2); BASOPHILS % (AUTO) 1.1 % (0-2); EOSINOPHILS % (AUTO) 1.7 % (0-6); HEMATOCRIT 28.5 % (36.0-47.0); HEMOGLOBIN 9.3 g/dL (12.0-15.5); LYMPHOCYTES % (AUTO) 23.9 % (13-45); MEAN CORPUSCULAR HEMOGLOBIN 26.3 pg (27.0-33.4); MEAN CORPUSCULAR HGB CONC 32.5 g/dL (32.0-36.0); MEAN CORPUSCULAR VOLUME 81 fl (80-97); MONOCYTES % (AUTO) 8.8 % (3-13); PLATELET COUNT 229 10^3/uL (150-450); RED BLOOD COUNT 3.53 10^6/uL (3.72-5.28); RED CELL DISTRIBUTION WIDTH 16.8 % (11.5-14.0); SEGMENTED NEUTROPHILS % (AUTO) 64.5 % (42-78); TOTAL CELLS COUNTED % (AUTO) 100 %; WHITE BLOOD COUNT 3.9 10^3/uL (4.0-10.5)
[2019-11-01 22:22] LABS: ALBUMIN 4.1 g/dL (3.5-5.0); ALKALINE PHOSPHATASE 55 U/L (38-126); ANION GAP 11 (5-19); ASPARTATE AMINO TRANSFERASE 19 U/L (14-36); BILIRUBIN,DIRECT 0.3 mg/dL (0.0-0.4); BILIRUBIN,TOTAL 0.4 mg/dL (0.2-1.3); BLOOD UREA NITROGEN 14 mg/dL (7-20); CALCIUM 8.9 mg/dL (8.4-10.2); CARBON DIOXIDE 20 mmol/L (22-30); CHLORIDE 109 mmol/L (98-107); GLUCOSE 76 mg/dL (75-110); POTASSIUM 3.7 mmol/L (3.6-5.0); TOTAL PROTEIN 7.2 g/dL (6.3-8.2)
[2019-11-01] MEDS ORDERED: HYDROCODONE/ACETAMINOPHEN 5-325 MG (6 TAB/ER DISP) PO PRN (22:56)
[2019-11-01 23:35] VITALS: BP 104/60
== END 2019-11-01 23:27 | disposition home or self-care (01) ==
LOC: ER 16:20
DX: N30.01 Acute cystitis with hematuria (principal); K50.919 Crohn's disease, unspecified, with unspecified complications; R10.32 Left lower quadrant pain; R11.2 Nausea with vomiting, unspecified; R09.81 Nasal congestion; Z88.6 Allergy status to analgesic agent; Z88.3 Allergy status to other anti-infective agents; Z87.442 Personal history of urinary calculi; Z90.49 Acquired absence of other specified parts of digestive tract
CPT/HCPCS: 36415; 87086; 84703; 85025; 87088; 80053; 81001; 87804; 71046; 76830; J1200; J2270; J0696; J2405; J7030; J3490; 87186

== ENCOUNTER 2019-12-20 12:57 | Emergency (ER) | payer MEDICAID ==
[2019-12-20] MEDS ORDERED: METHYLPREDNISOLONE INJ 125 MG/2 ML SDV IV ONE (13:14)
[2019-12-20] MEDS ORDERED: DIPHENHYDRAMINE HCL 50 MG/ML VIAL IV ONE (13:14)
[2019-12-20] MEDS ORDERED: FAMOTIDINE INJ/PF 20 MG/2 ML SDV IV ONE (13:14)
[2019-12-20] MEDS ORDERED: NYSTATIN/DEXAMETH/DIPHEN SUSP 120 ML PO ONE (14:09)
--- NOTE | 2019-12-20 14:42 | RADIOLOGY REPORT (SQ) ---
EXAM DESCRIPTION: CT SOFT TISSUE NECK WITH IMAGES COMPLETED DATE/TIME: 12/20/2019 2:28 pm REASON FOR STUDY: mouth pain, trismus COMPARISON: None. TECHNIQUE: Post IV contrasted scanning from skull base through lung apices with review of bone, soft tissue and lung windows. Reconstructed coronal and sagittal MPR images reviewed. All images stored on PACS. All CT scanners at this facility use dose modulation, iterative reconstruction, and/or weight based d osing when appropriate to reduce radiation dose to as low as reasonably achievable (ALARA). [facility]: Dose Right [facility]: CareDose [facility]: Dose Right [facility]: Teradose 4D [facility]: CloudHelix CONTRAST TYPE AND DOSE: 75mL Omnipaque 350 RENAL FUNCTION: None required. The patient is less than 50 years old. RADIATION DOSE: CT Rad equipment meets quality standard of care and radiation dose reduction techniq ues were employed. CTDIvol: 8.9 mGy. DLP: 275 mGy-cm. mGy. LIMITATIONS: None. FINDINGS: SKULL BASE: Intact. MAJOR SALIVARY GLANDS: No solid or cystic masses. No inflammatory changes. LYMPHADENOPATHY: No adenopathy. MUCOSAL MASSES OR ASYMMETRY: No mucosal masses or asymmetry. LARYNX/CORDS: No abnormal findings. VASCULAR STRUCTURES: The major vessels are patent. LUNG APICES: Clear. BONES: Intact. THYROID: Normal size. No masses. PARANASAL SINUSES: Clear. OTHER: No other significant finding. IMPRESSION: NO SIGNIFICANT FINDING IN THE SOFT TISSUES OF THE NECK. TECHNICAL DOCUMENTATION: JOB ID: [id number] [facility] [id number]: Final reports with documentation of one or more dose reduction techniques (e.g., Automate d exposure control, adjustment of the mA and/or kV according to patient size, use of iterative recons truction technique) 2010 [employer]- All Rights Reserved Reading location - IP/workstation name: [facility] LUIS
--- NOTE | 2019-12-20 15:36 | ER Document Report ---
HPI - HPI Time Seen by Provider: 12/20/19 13:09 Pain Level: 5 Notes: Otherwise healthy 29-year-old female presenting to the emergency department chief complaint of mouth pain and dental pain. Patient reports all of her teeth hurt, she states that she has a burning and itching sensation in her mouth and she states that she has what she feels is pus draining from her mouth. She reports she is unable to open her mouth fully although she is able to speak in complete sentences and is swallowing her own saliva without difficulty. She denies any fever. - CONSTITUTIONAL Constitutional: REPORTS: Fever - Per patient report. DENIES: Chills - NEURO Neurology: DENIES: Headache - CARDIOVASCULAR Cardiovascular: DENIES: Chest pain - GASTROINTESTINAL Gastrointestinal: DENIES: Abdominal Pain - REPRODUCTIVE LMP: 12/17/2019 Reproductive: DENIES: : Past Medical History - General Information source: Patient - Social History Smoking Status: Never Smoker Chew tobacco use (# tins/day): No Frequency of alcohol use: Occasional Drug Abuse: Marijuana Family History: Reviewed & Not Pertinent Patient has suicidal ideation: No Patient has homicidal ideation: No Renal/ Medical History: Reports: Hx Kidney Stones GI Medical History: Reports: Hx Crohn's Disease Musculoskeletal Medical History: Reports Hx Musculoskeletal Trauma Infectious Medical History: Reports: Hx C-Diff Past Surgical History: Reports: Hx Abdominal Surgery, Hx Appendectomy, Hx Section, Hx Cholecystectomy, Hx Tubal Ligation - Immunizations Immunizations up to date: Yes Vertical Provider Document - CONSTITUTIONAL Notes: PHYSICAL EXAMINATION: GENERAL: Well-appearing, well-nourished and in no acute distress. HEAD: Atraumatic, normocephalic. EYES: Pupils equal round extraocular movements intact, conjunctiva are normal. ENT: Nares patent, poor dentition noted throughout, no obvious drainable abscess. Poor dental hygiene noted, mild trismus noted, tenderness to palpation in the mandibular areas bilaterally. NECK: Normal range of motion LUNGS: No respiratory distress Musculoskeletal: Normal range of motion NEUROLOGICAL: Normal speech, normal gait. PSYCH: Normal mood, normal affect. SKIN: Warm, Dry, normal turgor, no rashes or lesions noted. - INFECTION CONTROL TRAVEL OUTSIDE OF THE [place] IN LAST 30 DAYS: No Course - Re-evaluation Re-evalutation: Patient was sent for CT soft tissue neck with contrast to ensure that no abscess was missed. The CT was negative. Patient now opening and closing her mouth without any difficulty. She is requesting narcotic pain medication. No narcotic pain medication is indicated at this time. Patient will be started on antibiotics and Magic mouthwash and will be discharged home. - Vital Signs Vital signs: Temp Pulse Resp BP Pulse Ox 98.3 F 98 16 114/74 100 12/20/19 13:01 12/20/19 13:01 12/20/19 13:01 12/20/19 13:12/20/19 13:01 Discharge - Discharge Clinical Impression: Mouth pain Condition: Stable Disposition: HOME, SELF-CARE Additional Instructions: Please take medications as prescribed. Follow-up with a dentist. [facility] [phone] Prescriptions: Clindamycin HCl 300 mg PO TID #30 capsule Nystatin/Dexameth/Diphen [Magic Mouthwash ([facility] Formula) Susp] 10 ml PO QID #120 ml Hydroxyzine Pamoate [Vistaril 25 mg Capsule] 25 mg PO QID #30 capsule Referrals: HAYDE LEOS JR, MD [NO LOCAL MD] - Follow up as needed
[2019-12-20 16:13] VITALS: BP 103/63
== END 2019-12-20 16:13 | disposition home or self-care (01) ==
LOC: ER 12:57
DX: K13.79 Other lesions of oral mucosa (principal); K08.89 Other specified disorders of teeth and supporting structures; R25.2 Cramp and spasm; F12.10 Cannabis abuse, uncomplicated
CPT/HCPCS: 99283; 96374; 96375; 70491; J1200; J2930; J3490; S0028

== ENCOUNTER 2020-07-08 11:32 | Emergency (ER) | payer MEDICAID ==
[2020-07-08] MEDS ORDERED: ONDANSETRON HCL INJ/PF 4 MG/2 ML SDV IV ONE ×2 (12:35→15:21)
[2020-07-08] MEDS ORDERED: RINGERS SOLUTION,LACTATED 1,000 ML IV ONE (12:35)
--- NOTE | 2020-07-08 12:38 | ER Document Report ---
ED Medical Screen (RME) - General Stated Complaint: FLANK PAIN Time Seen by Provider: 07/08/20 12:25 TRAVEL OUTSIDE OF THE [place] IN LAST 30 DAYS: No - HPI Notes: 07/08/20 12:36 29-year-old female with past medical history of Crohn's, endometriosis, appendectomy, cholecystectomy to the emergency department with complaints of progressively worsening right flank pain for the past 3 days. Of note she just got out of the hospital in [place]. She states that she was there for 6 days for Crohn's flare. She states that she had a transfusion. Initially they thought she might have C. difficile but her C. difficile came back negative. She is still pending of parasite results. She states that she got a little bit better but then she started to have dark-colored urine. She states that she was diagnosed with a UTI. She was placed on Macrobid and Keflex. She states that she was better when she left the hospital but over the past 2 days she has been getting worse. She is not currently on any medicines for her Crohn's because it was in remission. She admits to low-grade fever 101 at home. She states that she is not been able to hold anything down. She also reports that she has had some elevated liver enzymes in the past week. She has recently been traveling. She is unsure of her COVID-19 status. The patient was evaluated during the global COVID 19 pandemic, and that diagnosis was suspected/considered upon their initial presentation. Their evaluation, treatment, and testing was consistent with current guidelines for patients who present with complaints or symptoms that may be related to COVID-19. I performed a brief medical screening exam on the patient determined that the patient needs further evaluation and management by main side provider. I have placed initial orders to help expedite care. - Related Data Allergies/Adverse Reactions: Iodinated Contrast Media Allergy (Intermediate, Verified 07/08/20 12:32) other aspirin Allergy (Verified 07/08/20 12:32) ciprofloxacin [From Cipro] Allergy (Verified 07/08/20 12:32) dicyclomine [From Bentyl] Allergy (Verified 07/08/20 12:32) haloperidol [From Haldol] Allergy (Verified 07/08/20 12:32) ketorolac [From Toradol] Allergy (Verified 07/08/20 12:32) NSAIDS (Non-Steroidal Anti-Inflamma Allergy (Verified 07/08/20 12:32) piperacillin [From Zosyn] Allergy (Verified 07/08/20 12:32) sulfamethoxazole [From Bactrim] Allergy (Verified 07/08/20 12:32) tazobactam [From Zosyn] Allergy (Verified 07/08/20 12:32) trimethoprim [From Bactrim] Allergy (Verified 07/08/20 12:32) Past Medical History Renal/ Medical History: Reports: Hx Kidney Stones GI Medical History: Reports: Hx Crohn's Disease Musculoskeltal Medical History: Reports Hx Musculoskeletal Trauma Infectious Medical History: Reports: Hx C-Diff Past Surgical History: Reports: Hx Abdominal Surgery, Hx Appendectomy, Hx Section, Hx Cholecystectomy, Hx Tubal Ligation - Immunizations Immunizations up to date: Yes
[2020-07-08 13:44] LABS: ABSOLUTE LYMPHOCYTES (AUTO) 0.9 10^3/uL (0.5-4.7); ABSOLUTE MONOCYTES (AUTO) 0.2 10^3/uL (0.1-1.4); ABSOLUTE NEUT (AUTO) 3.8 10^3/uL (1.7-8.2); BASOPHILS % (AUTO) 0.8 % (0-2); EOSINOPHILS % (AUTO) 0.3 % (0-6); HEMATOCRIT 34.8 % (36.0-47.0); HEMOGLOBIN 11.7 g/dL (12.0-15.5); LYMPHOCYTES % (AUTO) 17.7 % (13-45); MEAN CORPUSCULAR HEMOGLOBIN 27.8 pg (27.0-33.4); MEAN CORPUSCULAR HGB CONC 33.5 g/dL (32.0-36.0); MEAN CORPUSCULAR VOLUME 83 fl (80-97); MONOCYTES % (AUTO) 3.6 % (3-13); PLATELET COUNT 313 10^3/uL (150-450); RED BLOOD COUNT 4.21 10^6/uL (3.72-5.28); RED CELL DISTRIBUTION WIDTH 18.7 % (11.5-14.0); SEGMENTED NEUTROPHILS % (AUTO) 77.6 % (42-78); TOTAL CELLS COUNTED % (AUTO) 100 %; WHITE BLOOD COUNT 4.9 10^3/uL (4.0-10.5)
[2020-07-08 14:07] LABS: ALKALINE PHOSPHATASE 140 U/L (38-126); ANION GAP 12 (5-19); ASPARTATE AMINO TRANSFERASE 87 U/L (14-36); BILIRUBIN,DIRECT 0.3 mg/dL (0.0-0.4); BILIRUBIN,TOTAL 0.5 mg/dL (0.2-1.3); BLOOD UREA NITROGEN 9 mg/dL (7-20); CALCIUM 10.5 mg/dL (8.4-10.2); CARBON DIOXIDE 26 mmol/L (22-30); CHLORIDE 102 mmol/L (98-107); GLUCOSE 100 mg/dL (75-110); POTASSIUM 4.6 mmol/L (3.6-5.0); TOTAL PROTEIN 8.5 g/dL (6.3-8.2)
[2020-07-08] MEDS ORDERED: METOCLOPRAMIDE HCL INJ/PF 10 MG/2 ML SDV IV ONE (14:53)
[2020-07-08] MEDS ORDERED: MORPHINE SULFATE 10 MG/ML INJ IV ONE (14:53)
--- NOTE | 2020-07-08 14:54 | ER Document Report ---
ED GI/ - General Chief Complaint: Abdominal Pain Stated Complaint: FLANK PAIN Time Seen by Provider: 07/08/20 12:25 Primary Care Provider: KATARZYNA RÍOS MD [COMMUNITY BASED STAFF] - Follow up as needed Mode of Arrival: Ambulatory Information source: Patient Notes: 29-year-old female past medical history significant for Crohn's, anemia, fecal transplant renal stents presents to the emergency room complaining of abdominal pain, right flank pain, nausea, vomiting, dysuria and fatigue. Denies any fever. Denies any diarrhea. Describes her generalized abdominal and flank pain as cramping. Patient states she just returned today after being in [place] for 7- 1/2 weeks for work. States she was admitted for a week for a Crohn's flare and UTI. Was on IV Rocephin. States she was discharged on Wednesday on p.o. Keflex and Macrobid. States she does not feel that she fully recovered from her hospitalization. States she did have a negative Covid test prior to being admitted. She denies any known Covid 19 exposure. States they also told her her liver enzymes were elevated while she was hospitalized but states that CT did not show any significant abnormalities related to her liver enzymes other than her Crohn's flare. She denies any known ill contact. Currently without a primary care physician. TRAVEL OUTSIDE OF THE U.S. IN LAST 30 DAYS: No - Related Data Allergies/Adverse Reactions: Iodinated Contrast Media Allergy (Intermediate, Verified 07/08/20 12:32) other aspirin Allergy (Verified 07/08/20 12:32) ciprofloxacin [From Cipro] Allergy (Verified 07/08/20 12:32) dicyclomine [From Bentyl] Allergy (Verified 07/08/20 12:32) haloperidol [From Haldol] Allergy (Verified 07/08/20 12:32) ketorolac [From Toradol] Allergy (Verified 07/08/20 12:32) metoclopramide [From Reglan] Allergy (Verified 07/08/20 15:28) NSAIDS (Non-Steroidal Anti-Inflamma Allergy (Verified 07/08/20 12:32) piperacillin [From Zosyn] Allergy (Verified 07/08/20 12:32) sulfamethoxazole [From Bactrim] Allergy (Verified 07/08/20 12:32) tazobactam [From Zosyn] Allergy (Verified 07/08/20 12:32) trimethoprim [From Bactrim] Allergy (Verified 07/08/20 12:32) Home Medications: macrobid, keflex, zofran , tylenol Past Medical History - General Information source: Patient - Social History Smoking Status: Never Smoker Chew tobacco use (# tins/day): No Frequency of alcohol use: Social Drug Abuse: None Family History: Reviewed & Not Pertinent Patient has homicidal ideation: No Renal/ Medical History: Reports: Hx Kidney Stones GI Medical History: Reports: Hx Crohn's Disease Musculoskeletal Medical History: Reports Hx Musculoskeletal Trauma Infectious Medical History: Reports: Hx C-Diff Past Surgical History: Reports: Hx Abdominal Surgery, Hx Appendectomy, Hx Section, Hx Cholecystectomy, Hx Tubal Ligation - Immunizations Immunizations up to date: Yes Review of Systems - Review of Systems Constitutional: Malaise EENT: No symptoms reported Cardiovascular: No symptoms reported Respiratory: No symptoms reported Gastrointestinal: Abdominal pain, Nausea, Vomiting. denies: Diarrhea, Constipat ion Genitourinary: Dysuria, Flank pain Musculoskeletal: Muscle pain Skin: No symptoms reported Neurological/Psychological: No symptoms reported -: Yes All other systems reviewed and negative Physical Exam - Vital signs Vitals: Temp Pulse Resp BP Pulse Ox 98.7 F 98 18 118/72 100 07/08/20 12:42 07/08/20 12:42 07/08/20 12:42 07/08/20 12:42 07/08/20 12:42 - General General appearance: Appears well, Alert In distress: Mild - Respiratory Respiratory status: No respiratory distress Chest status: Nontender Breath sounds: Normal Chest palpation: Normal - Cardiovascular Rhythm: Regular Heart sounds: Normal auscultation Murmur: No - Abdominal Inspection: Normal Distension: No distension Bowel sounds: Normal Tenderness: Nontender Organomegaly: No organomegaly - Back Back: Normal, Nontender, CVA tenderness - Right-sided - Neurological Neuro grossly intact: Yes Cognition: Normal Orientation: AAOx4 [place] Coma Scale Eye Opening: Spontaneous Md[place]uri Coma Scale Verbal: Oriented [place] Coma Scale Motor: Obeys Commands Madison Coma Scale Total: 15 Speech: Normal Motor strength normal: LUE, RUE, LLE, RLE Sensory: Normal - Skin Skin Temperature: Warm Skin Moisture: Dry Skin Color: Normal Course - Re-evaluation Re-evalutation: 07/08/20 15:21 Provider was notified by nurse that patient now states she is allergic to Reglan after nurse started IV administration of Reglan. It is not listed as one of her allergies. Benadryl ordered as needed for any side effects from the Reglan. Patient currently asymptomatic. 07/08/20 16:05 Patient is currently resting comfortably she is pain-free at this time. She is able to tolerate p.o. fluids. Reviewed all lab results with patient. Currently on Keflex and Macrobid for her UTI that was diagnosed in [place]. Will send urinalysis off for culture. Will get abdominal ultrasound secondary to elevated liver enzymes. Patient is agreeable to additional testing. 07/08/20 17:14 Patient is resting comfortably she is pain-free. She is pain-free on exam. Patient has informed myself and nursing staff that she needs to leave [facility] for family emergency. Does not want to stay to get her ultrasound results. Patient was also aware that she was tested for Covid and it is required that she self quarantine for 14 days or until she gets a negative Covid test. It was recommended that she follow-up outpatient with a primary care physician for further evaluation and treatment. On-call physician was provided. The patient has chosen to leave the facility against medical advice. The relevant issues have been reviewed and discussed with the patient and family at the bedside. At the time of this assessment there is no indication for involuntary commitment. The patient is alert, oriented, and able to express clearly their reasoning for not wanting to remain in the emergency department for further treatment. The patient is not clinically psychotic, intoxicated, and denies and suicidal ideation. Differential or suspected diagnoses based on medical screening exam: Flank pain, abdominal pain, dysuria The patient is aware of the concerning diagnoses and acknowledges understanding of the reasons for the following recommendations: Loss of life, permanent disability, chronic pain, worsening of condition, cardiac dysfunction, respiratory dysfunction ,loss of current lifestyle, urinary dysfunction The following recommendations/services were offered and refused: Further testing and evaluation The following risks were explained: , permanent disability, loss of current lifestyle, respiratory dysfunction, urinary dysfunction, chronic pain, Clinical impression: Patient is competent to make decisions regarding the medical that is being offered. 07/08/20 17:19 07/08/20 17:20 - Vital Signs Vital signs: Temp Pulse Resp BP Pulse Ox 98.2 F 66 15 112/90 H 100 07/08/20 17:27 07/08/20 17:27 07/08/20 17:27 07/08/20 17:27 07/08/20 17:27 - Laboratory Result Diagrams: 07/08/20 13:25 07/08/20 13:25 Laboratory results interpreted by me: 07/08/20 07/08/20 07/08/20 13:25 13:25 15:27 Hgb 11.7 L Hct 34.8 L RDW 18.7 H Calcium 10.5 H AST 87 H ALT 73 H Alkaline Phosphatase 140 H Total Protein 8.5 H Urine Blood SMALL H Leukocyte Esterase Rfl MODERATE H Discharge - Discharge Clinical Impression: Abdominal pain of unknown etiology, Dysuria, Right flank pain, Elevated LFTs, Left against medical advice, Person under investigation for COVID-19 Nausea and vomiting Qualifiers: Vomiting type: unspecified Vomiting Intractability: non-intractable Qualified Code(s): R11.2 - Nausea with vomiting, unspecified Condition: Stable Disposition: AGAINST MEDICAL ADVICE Instructions: COVID-19 Guidance for Persons Under Investigation, Abdominal Pain ([facility]), Flank Pain ([facility]), Vomiting ([facility]) Additional Instructions: Encourage fluids. Outpatient follow-up with the primary care physician if not improving in 2 to 3 days. Return to emergency room for any new or worsening symptoms. You have requested to leave AGAINST MEDICAL ADVICE you have been counseled on the risks of leaving AGAINST MEDICAL ADVICE including but not limited to , worsening condition, chronic pain, loss of current lifestyle, gastrointestinal dysfunction, urinary dysfunction, You may return to the emergency room at any time for further evaluation and treatment. Referrals: KATARZYNA RÍOS MD [COMMUNITY BASED STAFF] - Follow up as needed
[2020-07-08] MEDS ORDERED: DIPHENHYDRAMINE HCL 50 MG/ML VIAL IV ONE (15:20)
[2020-07-08 15:48] LABS: APPEARANCE,URINE SLIGHTLY-CLOUDY; BILIRUBIN,URINE NEGATIVE (NEGATIVE); COLOR,URINE YELLOW; GLUCOSE, URINE NEGATIVE (NEGATIVE); KETONES,URINE NEGATIVE (NEGATIVE); PROTEIN,URINE NEGATIVE (NEGATIVE); URINE SPECIFIC GRAVITY 1.006; UROBILINOGEN,URINE NEGATIVE mg/dL (<2.0)
[2020-07-08 17:08] VITALS: BP 112/90
--- NOTE | 2020-07-08 17:52 | RADIOLOGY REPORT (SQ) ---
EXAM DESCRIPTION: U/S ABDOMEN COMPLETE W/DOPPLER IMAGES COMPLETED DATE/TIME: 07/08/2020 5:30 pm REASON FOR STUDY: abdominal pain COMPARISON: 09/24/2023 TECHNIQUE: Dynamic and static grayscale images acquired of the abdomen and recorded on PACS. Additio nal selected color Doppler and spectral images recorded. Note: Study does not meet criteria for complete doppler/duplex scan LIMITATIONS: None. FINDINGS: PANCREAS: No masses. Visualized pancreatic duct normal caliber. LIVER: No masses. Mild hepatic steatosis. . LIVER VASCULATURE: Normal directional flow of the main portal vein and hepatic veins. GALLBLADDER: Surgically absent. ULTRASOUND-DETECTED JI'S SIGN: Negative. INTRAHEPATIC DUCTS AND COMMON DUCT: CBD and intrahepatic ducts normal caliber. No filling defects. INFERIOR VENA CAVA: Normal flow. AORTA: No aneurysm. RIGHT KIDNEY: Normal size. Normal echogenicity. No solid or suspicious masses. No hydronephros is. Mild prominence of the extrarenal collecting system may be physiologic. No calcifications. LEFT KIDNEY: Normal size. Normal echogenicity. No solid or suspicious masses. No hydronephrosi s. No calcifications. SPLEEN: Normal size. No solid masses. PERITONEAL AND PLEURAL SPACES: No ascites or effusions. OTHER: No other significant finding. IMPRESSION: No acute abnormality. Status post cholecystectomy. Mild hepatic steatosis. Mild promi nence of the right extrarenal collecting system in the absence of hydronephrosis is of doubtful clini gwendolyn significance. TECHNICAL DOCUMENTATION: JOB ID: [id number] 2010 [employer]- All Rights Reserved Reading location - IP/workstation name: [email or web address]
== END 2020-07-08 17:27 | disposition left against medical advice (07) ==
LOC: ER 11:32
DX: N39.0 Urinary tract infection, site not specified (principal); K50.90 Crohn's disease, unspecified, without complications; R10.84 Generalized abdominal pain; R11.2 Nausea with vomiting, unspecified; K76.0 Fatty (change of) liver, not elsewhere classified; R74.8 Abnormal levels of other serum enzymes; M79.10 Myalgia, unspecified site; R79.89 Other specified abnormal findings of blood chemistry; Z79.899 Other long term (current) drug therapy; Z90.49 Acquired absence of other specified parts of digestive tract; Z98.51 Tubal ligation status; Z91.041 Radiographic dye allergy status; Z88.8 Allergy status to other drugs, medicaments and biological substances; Z88.1 Allergy status to other antibiotic agents; Z53.29 Procedure and treatment not carried out because of patient's decision for other reasons; Z20.828 Contact with and (suspected) exposure to other viral communicable diseases
CPT/HCPCS: 99285; 96361; 96374; 96375; 36415; 87040; 87086; 83605; 83690; 83735; 84703; 85025; 87635; 80053; 81001; 76700; 93976; J1200; J2765; J2270; J7120; C9803; J2405

== ENCOUNTER 2020-07-10 14:36 | Emergency (ER) | payer MEDICAID ==
[2020-07-10] MEDS ORDERED: RINGERS SOLUTION,LACTATED 1,000 ML IV ONE (14:51)
--- NOTE | 2020-07-10 14:53 | ER Document Report ---
ED Medical Screen (RME) - General Chief Complaint: Bloody Stools Stated Complaint: BLOODY STOOLS Time Seen by Provider: 07/10/20 14:43 Information source: Patient Notes: Patient presents complaining of possible Crohn's flare. Patient states she was admitted to the hospital for 6 days and was discharged 5 days ago. Patient states she has had blood in her stool and has had nausea vomiting diarrhea. Patient reports vomiting 4 episodes today and having diarrhea x6 or 7 episodes. Patient reports fever of 101.3 this morning. Patient complains of lower abdominal pain and right upper quadrant tenderness. Patient reports some mild right flank pain. Patient states that during her recent hospitalization she did receive a blood transfusion as well as an iron transfusion. Patient has been taking Tylenol and Zofran today at home for symptoms. Patient reports a history of Crohn's, anemia, C. difficile that required a fecal transplant. Patient has had a history of appendectomy, cholecystectomy, renal stent tubal ligation and . I have greeted and performed a rapid initial assessment of this patient. A comprehensive ED assessment and evaluation of the patient, analysis of test results and completion of the medical decision making process will be conducted by additional ED providers. TRAVEL OUTSIDE OF THE [place] IN LAST 30 DAYS: No - Related Data Allergies/Adverse Reactions: Iodinated Contrast Media Allergy (Intermediate, Verified 07/08/20 12:32) other aspirin Allergy (Verified 07/08/20 12:32) ciprofloxacin [From Cipro] Allergy (Verified 07/08/20 12:32) dicyclomine [From Bentyl] Allergy (Verified 07/08/20 12:32) haloperidol [From Haldol] Allergy (Verified 07/08/20 12:32) ketorolac [From Toradol] Allergy (Verified 07/08/20 12:32) metoclopramide [From Reglan] Allergy (Verified 07/08/20 15:28) NSAIDS (Non-Steroidal Anti-Inflamma Allergy (Verified 07/08/20 12:32) piperacillin [From Zosyn] Allergy (Verified 07/08/20 12:32) sulfamethoxazole [From Bactrim] Allergy (Verified 07/08/20 12:32) tazobactam [From Zosyn] Allergy (Verified 07/08/20 12:32) trimethoprim [From Bactrim] Allergy (Verified 07/08/20 12:32) Past Medical History Renal/ Medical History: Reports: Hx Kidney Stones GI Medical History: Reports: Hx Crohn's Disease Musculoskeltal Medical History: Reports Hx Musculoskeletal Trauma Infectious Medical History: Reports: Hx C-Diff Past Surgical History: Reports: Hx Abdominal Surgery, Hx Appendectomy, Hx Section, Hx Cholecystectomy, Hx Tubal Ligation - Immunizations Immunizations up to date: Yes Physical Exam - General General appearance: Alert Notes: dry mucous membranes - Abdominal Tenderness: Tender - Lower abdomen, right upper quadrant
[2020-07-10] MEDS ORDERED: ONDANSETRON HCL INJ/PF 4 MG/2 ML SDV IV ONE (15:59)
[2020-07-10] MEDS ORDERED: HYDROMORPHONE HCL INJ/PF 2 MG/ML AMPULE IV ONE (16:00)
--- NOTE | 2020-07-10 16:04 | ER Document Report ---
ED General - General Chief Complaint: Bloody Stools Stated Complaint: BLOODY STOOLS Time Seen by Provider: 07/10/20 14:43 Mode of Arrival: Ambulatory Information source: Patient Notes: Patient is a 29-year-old female reported history of Crohn's disease here for abdominal pain, fever, bloody stools, uncontrolled diarrhea, nausea, vomiting. Was seen here 2 days ago for same. Left AGAINST MEDICAL ADVICE. States prior to that she was in the hospital for several weeks in [place] with C. difficile colitis. She states in her present condition that she feels just the same as she did when she had C. difficile colitis before. TRAVEL OUTSIDE OF THE [place] IN LAST 30 DAYS: No - Related Data Allergies/Adverse Reactions: Iodinated Contrast Media Allergy (Intermediate, Verified 07/08/20 12:32) other aspirin Allergy (Verified 07/08/20 12:32) ciprofloxacin [From Cipro] Allergy (Verified 07/08/20 12:32) dicyclomine [From Bentyl] Allergy (Verified 07/08/20 12:32) haloperidol [From Haldol] Allergy (Verified 07/08/20 12:32) ketorolac [From Toradol] Allergy (Verified 07/08/20 12:32) metoclopramide [From Reglan] Allergy (Verified 07/08/20 15:28) NSAIDS (Non-Steroidal Anti-Inflamma Allergy (Verified 07/08/20 12:32) piperacillin [From Zosyn] Allergy (Verified 07/08/20 12:32) sulfamethoxazole [From Bactrim] Allergy (Verified 07/08/20 12:32) tazobactam [From Zosyn] Allergy (Verified 07/08/20 12:32) trimethoprim [From Bactrim] Allergy (Verified 07/08/20 12:32) Past Medical History - General Information source: Patient - Social History Smoking Status: Unknown if Ever Smoked Family History: Reviewed & Not Pertinent Patient has homicidal ideation: No Renal/ Medical History: Reports: Hx Kidney Stones GI Medical History: Reports: Hx Crohn's Disease Musculoskeletal Medical History: Reports Hx Musculoskeletal Trauma Infectious Medical History: Reports: Hx C-Diff Past Surgical History: Reports: Hx Abdominal Surgery, Hx Appendectomy, Hx Section, Hx Cholecystectomy, Hx Tubal Ligation - Immunizations Immunizations up to date: Yes Review of Systems - Review of Systems Notes: Constitutional: Positive for fever and chills EENT: No eye redness. No eye pain. No ear pain. No sore throat. Cardiovascular: No chest pain. No palpitations. Respiratory: No cough. No shortness of breath. No respiratory distress. Gastrointestinal: Positive for abdominal pain, nausea, vomiting, and diarrhea Genitourinary: Atraumatic. No lesions. No pain. No discharge. Musculoskeletal: Atraumatic. No swelling. No deformities. Skin: No rash or lesions. Lymphatic: No swollen lymph nodes. Neurologic: No headache. No syncope. Psychiatric: No suicidal or homicidal ideation. Physical Exam - Notes Notes: General: Well-developed, well-nourished. In no acute distress. Non-toxic appearing. Cardiac: Well-perfused. Regular rate and rhythm. No murmurs, rubs, or gallops. Pulmonary: No respiratory distress. No cyanosis. Bilateral lung bustillo are clear to auscultation. Abdominal: Non-distended. Non-rigid. Bowels sounds are present in all four quadrants. No guarding or rebound. HEENT: Head is atraumatic. Conjunctivae not reddened. No tearing. PERRL. EOMI. Orbits atraumatic. No periorbital swelling or erythema. Oropharynx is without erythema, swelling, or exudates. Neck: Supple. No adenopathy. No meningismus. Dermatologic: Warm with good turgor. No rash. Atraumatic. Chest: Atraumatic. No chest wall tenderness to palpation. Musculoskeletal: Moves all extremities well. No range of motion deficits. no muscular or joint tenderness. No paraspinal muscle tenderness. no midline spinal tenderness or step-off. Genitourinary: Examination deferred Neurologic: No gross neurologic deficits. Psychiatric: Normal mood. Course - Re-evaluation Re-evalutation: 07/10/20 20:07 Patient's labs are all normal CT is normal. Unable to give a stool specimen in several hours. Will discharge patient home with Antonia for stomach cramping. We will give her some stool collection bottles and let her do her stool collection at home and bring back to the hospital lab. I doubt very seriously that the diarrhea that she is experiencing is due to C. difficile. - Laboratory Result Diagrams: 07/10/20 16:44 07/10/20 16:44 Laboratory results interpreted by me: 07/10/20 07/10/20 07/10/20 16:44 16:44 19:16 Hgb 11.3 L Hct 33.5 L RDW 19.3 H Creatinine 0.48 L AST 37 H ALT 39 H Urine Protein 30 H Urine Ketones TRACE H Ur Leukocyte Esterase TRACE H Discharge - Discharge Clinical Impression: Abdominal pain Qualifiers: Abdominal location: unspecified location Qualified Code(s): R10.9 - Unspecified abdominal pain Diarrhea Qualifiers: Diarrhea type: unspecified type Qualified Code(s): R19.7 - Diarrhea, unspecified Condition: Good Disposition: HOME, SELF-CARE Instructions: Abdominal Pain ([facility]), Antispasmodics ([facility]), Diarrhea, Nonspecific ([facility]) Additional Instructions: You can collect your stool specimens in the privacy of urine home and bring back the bottles and the order slip included to the laboratory here at the hospital. You do not have to sign into the emergency department to drop off your stool studies. A sales representative public utilities of the hospital will contact you with any and all positive results that need treatment. If your symptoms get worse you may always return to the emergency department to be rechecked. Prescriptions: Ondansetron [Zofran Odt 4 mg Tablet] 1 - 2 tab PO Q4H PRN #15 tab.rapdis PRN Reason: For Nausea/Vomiting Forms: Follow-Up Outpatient Testing Referrals: KOLE PLASENCIA DO [NO LOCAL MD] - Follow up as needed
[2020-07-10 16:55] LABS: ABSOLUTE LYMPHOCYTES (AUTO) 1.1 10^3/uL (0.5-4.7); ABSOLUTE MONOCYTES (AUTO) 0.3 10^3/uL (0.1-1.4); BASOPHILS % (AUTO) 0.9 % (0-2); EOSINOPHILS % (AUTO) 0.3 % (0-6); HEMATOCRIT 33.5 % (36.0-47.0); HEMOGLOBIN 11.3 g/dL (12.0-15.5); LYMPHOCYTES % (AUTO) 20.4 % (13-45); MEAN CORPUSCULAR HEMOGLOBIN 28.4 pg (27.0-33.4); MEAN CORPUSCULAR HGB CONC 33.7 g/dL (32.0-36.0); MEAN CORPUSCULAR VOLUME 84 fl (80-97); MONOCYTES % (AUTO) 5.6 % (3-13); PLATELET COUNT 278 10^3/uL (150-450); RED BLOOD COUNT 3.98 10^6/uL (3.72-5.28); RED CELL DISTRIBUTION WIDTH 19.3 % (11.5-14.0); SEGMENTED NEUTROPHILS % (AUTO) 72.8 % (42-78); TOTAL CELLS COUNTED % (AUTO) 100 %; WHITE BLOOD COUNT 5.5 10^3/uL (4.0-10.5)
[2020-07-10 17:19] LABS: ALBUMIN 4.7 g/dL (3.5-5.0); ALKALINE PHOSPHATASE 104 U/L (38-126); ANION GAP 13 (5-19); ASPARTATE AMINO TRANSFERASE 37 U/L (14-36); BILIRUBIN,DIRECT 0.3 mg/dL (0.0-0.4); BILIRUBIN,TOTAL 0.5 mg/dL (0.2-1.3); BLOOD UREA NITROGEN 18 mg/dL (7-20); CALCIUM 9.9 mg/dL (8.4-10.2); CARBON DIOXIDE 25 mmol/L (22-30); CHLORIDE 103 mmol/L (98-107); GLUCOSE 105 mg/dL (75-110); POTASSIUM 4.4 mmol/L (3.6-5.0); TOTAL PROTEIN 7.8 g/dL (6.3-8.2)
[2020-07-10] MEDS ORDERED: DIPHENHYDRAMINE HCL 50 MG/ML VIAL IV ONE (17:32)
--- NOTE | 2020-07-10 18:01 | RADIOLOGY REPORT (SQ) ---
EXAM DESCRIPTION: CT ABD/PELVIS NO ORAL OR IV IMAGES COMPLETED DATE/TIME: 07/10/2020 5:41 pm REASON FOR STUDY: cohns flare, fever, abd pain, bloody stools COMPARISON: CT abdomen pelvis 07/10/2020, 09/24/2019 TECHNIQUE: CT scan of the abdomen and pelvis performed without intravenous or oral contrast. Images reviewed with lung, soft tissue, and bone windows. Reconstructed coronal and sagittal MPR images revi ewed. All images stored on PACS. All CT scanners at this facility use dose modulation, iterative reconstruction, and/or weight based d osing when appropriate to reduce radiation dose to as low as reasonably achievable (ALARA). [facility]: Dose Right [facility]: CareDose [facility]: Dose Right [facility]: Teradose 4D [facility]: [employer] RADIATION DOSE: CT Rad equipment meets quality standard of care and radiation dose reduction techniq ues were employed. CTDIvol: 5.1 mGy. DLP: 286 mGy-cm.mGy. LIMITATIONS: No oral or IV contrast FINDINGS: LOWER CHEST: No significant findings. No nodules or infiltrates. NON-CONTRASTED LIVER, SPLEEN, ADRENALS: Evaluation limited by lack of IV contrast. No identified sign ificant masses. PANCREAS: No masses. No peripancreatic inflammatory changes. GALLBLADDER: Surgically absent. RIGHT KIDNEY AND URETER: No suspicious masses. Assessment limited by lack of IV contrast. No signif icant calcifications. No hydronephrosis or hydroureter. LEFT KIDNEY AND URETER: No suspicious masses. Assessment limited by lack of IV contrast. No signifi cant calcifications. No hydronephrosis or hydroureter. AORTA AND RETROPERITONEUM: No aneurysm. No retroperitoneal masses or adenopathy. BOWEL AND PERITONEAL CAVITY: No obvious masses or inflammatory changes. No free fluid. APPENDIX: Surgically absent. PELVIS, BLADDER, AND ABDOMINAL WALL:No abnormal masses. No free fluid. Bladder normal. BONES: No significant findings. OTHER: No other significant finding. IMPRESSION: NO SIGNIFICANT OR ACUTE PROCESS IN THE ABDOMEN OR PELVIS. COMMENT: Quality ID # [id number]: Final reports with documentation of one or more dose reduction techniques (e.g., Automated exposure control, adjustment of the mA and/or kV according to patient size, use of iterative reconstruction technique) TECHNICAL DOCUMENTATION: JOB ID: [id number] 2010 [employer]- All Rights Reserved Reading location - IP/workstation name: [id number]
[2020-07-10 19:56] LABS: APPEARANCE,URINE SLIGHTLY-CLOUDY; BILIRUBIN,URINE NEGATIVE (NEGATIVE); COLOR,URINE YELLOW; GLUCOSE, URINE NEGATIVE (NEGATIVE); KETONES,URINE TRACE mg/dL (NEGATIVE); LEUKOCYTE ESTERASE,URINE TRACE (NEGATIVE); NITRITE,URINE NEGATIVE (NEGATIVE); PROTEIN,URINE 30 mg/dL (NEGATIVE); URINE SPECIFIC GRAVITY 1.024; UROBILINOGEN,URINE NEGATIVE mg/dL (<2.0)
[2020-07-10 20:37] VITALS: BP 107/82
== END 2020-07-10 20:15 | disposition home or self-care (01) ==
LOC: ER 14:36
DX: K50.90 Crohn's disease, unspecified, without complications (principal); K92.1 Melena; R19.7 Diarrhea, unspecified; R11.2 Nausea with vomiting, unspecified; Z87.19 Personal history of other diseases of the digestive system; Z91.041 Radiographic dye allergy status; Z88.8 Allergy status to other drugs, medicaments and biological substances; Z88.1 Allergy status to other antibiotic agents; Z88.0 Allergy status to penicillin
CPT/HCPCS: 99285; 96361; 96374; 96375; 36415; 87040; 83690; 84703; 85025; 80053; 81001; 74176; J1200; J1170; J2405; J7120

== ENCOUNTER 2020-07-24 11:49 | Emergency (ER) | payer MEDICAID ==
[2020-07-24 12:02] VITALS: BP 116/62
[2020-07-24] MEDS ORDERED: OXYCODONE-ACETAMINOPHEN 5-325 MG TABLET PO ONE (12:28)
[2020-07-24] MEDS ORDERED: METHOCARBAMOL 500 MG TABLET PO ONE (12:28)
--- NOTE | 2020-07-24 12:30 | ER Document Report ---
ED Neck/Back Problem - General Chief Complaint: Neck Injury Stated Complaint: NECK PAIN Time Seen by Provider: 07/24/20 12:10 Primary Care Provider: [facility] [Provider Group] - Follow up as needed Mode of Arrival: Wheelchair Information source: Patient Notes: Patient states that she was playing the blackout game in which someone from behind chokes you out by compressing your carotid arteries. Patient states that she was playing this game last night and she blacked out. Patient states that the person let go of her and then she fell hitting her forehead on a tiled floor. Patient states that she woke up while she was shaking and she thinks that she may have had a seizure after the injury. Patient does have a history of previous seizure in the past. Patient states that she was only out for like 30 seconds as it was witnessed by a friend. Patient states that she was able to get up stairs and go to bed. Patient states that she had difficulty falling asleep and was having neck pain. Patient complains of neck and upper back tenderness. Patient denies any headache pain. TRAVEL OUTSIDE OF THE [place] IN LAST 30 DAYS: No - HPI Patient complains to provider of: Neck, Upper back Onset: This morning Where: Home Onset: Sudden Timing: Still present Quality of pain: Sharp Pain Level: 5 Context: Fall/near-fall, Seizure Recent injury: Yes Associated symptoms: Incontinence Exacerbated by: Nothing Relieved by: Nothing Recently seen / treated by doctor: No - Related Data Allergies/Adverse Reactions: Iodinated Contrast Media Allergy (Intermediate, Verified 07/24/20 12:17) other aspirin Allergy (Verified 07/24/20 12:17) ciprofloxacin [From Cipro] Allergy (Verified 07/24/20 12:17) dicyclomine [From Bentyl] Allergy (Verified 07/24/20 12:17) haloperidol [From Haldol] Allergy (Verified 07/24/20 12:17) ketorolac [From Toradol] Allergy (Verified 07/24/20 12:17) metoclopramide [From Reglan] Allergy (Verified 07/24/20 12:17) NSAIDS (Non-Steroidal Anti-Inflamma Allergy (Verified 07/24/20 12:17) piperacillin [From Zosyn] Allergy (Verified 07/24/20 12:17) sulfamethoxazole [From Bactrim] Allergy (Verified 07/24/20 12:17) tazobactam [From Zosyn] Allergy (Verified 07/24/20 12:17) trimethoprim [From Bactrim] Allergy (Verified 07/24/20 12:17) Home Medications: denies Past Medical History - General Information source: Patient - Social History Smoking Status: Never Smoker Chew tobacco use (# tins/day): No Frequency of alcohol use: Occasional Drug Abuse: None Occupation: Hospital Family History: Reviewed & Not Pertinent Patient has homicidal ideation: No - Medical History Medical History: Other - Anemia Neurological Medical History: Reports: Hx Seizures Renal/ Medical History: Reports: Hx Kidney Stones GI Medical History: Reports: Hx Crohn's Disease Musculoskeletal Medical History: Reports Hx Musculoskeletal Trauma Infectious Medical History: Reports: Hx C-Diff Past Surgical History: Reports: Hx Abdominal Surgery, Hx Appendectomy, Hx Section, Hx Cholecystectomy, Hx Kidney (Renal Surgery) - kidney stents, Hx Tubal Ligation - Immunizations Immunizations up to date: Yes Review of Systems - Review of Systems Constitutional: No symptoms reported. denies: Fever EENT: No symptoms reported Cardiovascular: No symptoms reported Respiratory: No symptoms reported. denies: Cough, Short of breath Gastrointestinal: No symptoms reported. denies: Vomiting Genitourinary: Incontinence - During reported seizure activity Female Genitourinary: No symptoms reported Musculoskeletal: Back pain, Neck pain Skin: Other - Swelling to forehead area Hematologic/Lymphatic: No symptoms reported Neurological/Psychological: Seizure Physical Exam - Vital signs Vitals: Temp Pulse Resp BP Pulse Ox 99.0 F 81 18 116/62 100 07/24/20 11:59 07/24/20 11:59 07/24/20 11:59 07/24/20 11:59 07/24/20 11:59 - General General appearance: Appears well, Alert In distress: None - HEENT Head: Tenderness - Forehead tenderness with swelling. No: Mccabe's sign Eyes: Normal Extraocular movements intact: Yes Eyelashes: Normal Pupils: PERRL Ears: Normal External canal: Normal Mouth/Lips: Normal Mucous membranes: Normal Notes: Anterior neck muscle tenderness, posterior cervical midline tenderness, no step- off or deformity, rigid cervical collar in place - Respiratory Respiratory status: No respiratory distress Chest status: Nontender Breath sounds: Normal. No: Rales, Rhonchi, Stridor, Wheezing Chest palpation: Normal - Cardiovascular Rhythm: Regular Heart sounds: S1 appreciated, S2 appreciated - Back Back: Tender - Bilateral trapezius muscle tenderness, Vertebra tenderness - Thoracic midline tenderness T1-4 area, no step-off or deformity - Extremities General upper extremity: Normal inspection, Nontender, Normal ROM, Normal strength General lower extremity: Normal inspection, Nontender, Normal ROM, Normal strength - Neurological Neuro grossly intact: Yes Cognition: Normal [place] Coma Scale Eye Opening: Spontaneous Madhuri Coma Scale Verbal: Oriented Madhuri Coma Scale Motor: Obeys Commands [place] Coma Scale Total: 15 Speech: Normal - Psychological Associated symptoms: Normal affect, Normal mood - Skin Skin Temperature: Warm Skin Moisture: Dry Skin Color: Normal Course - Re-evaluation Re-evalutation: 07/24/20 14:47 Patient reports feeling better after pain medications have been given. Patient's CT is reviewed, no concern for any acute findings. Reviewed patient's thoracic spine imaging, no acute fracture at this time. The patient presents with head injury without signs of PRODUCT RESPONSIBILITY LIAISON bleed, stroke, infection, or other serious etiology. The patient is neurologically intact. Given the extremely low risk of these diagnoses further testing and evaluation for these possibilities does not appear to be indicated at this time. The patient has been instructed to return if the symptoms worsen or change in any way. Patient given good return precautions. Patient encouraged to follow-up with her primary doctor for recheck. 07/24/20 23:56 - Vital Signs Vital signs: Temp Pulse Resp BP Pulse Ox 99.0 F 81 18 116/62 100 07/24/20 11:59 07/24/20 11:59 07/24/20 11:59 07/24/20 11:59 07/24/20 11:59 - Diagnostic Test Radiology reviewed: Reports reviewed Discharge - Discharge Clinical Impression: Trapezius muscle spasm Head injury Qualifiers: Encounter type: initial encounter Qualified Code(s): S09.90XA - Unspecified injury of head, initial encounter Cervical strain, acute Qualifiers: Encounter type: initial encounter Qualified Code(s): S16.1XXA - Strain of muscle, fascia and tendon at neck level, initial encounter Condition: Stable Disposition: HOME, SELF-CARE Instructions: Head Injury Precautions ([facility]), Neck Injury (Cervical Strain) ([facility]), Upper Back Strain ([facility]) Additional Instructions: Return immediately for any new or worsening symptoms Followup with your primary care provider, call tomorrow to make a followup appointment Prescriptions: Lidocaine [Lidoderm 5% (700 mg) Transdermal Patch] 1 patch TP DAILY PRN #10 adh..patch PRN Reason: Methocarbamol [Robaxin 500 Mg Tablet] 500 mg PO QID PRN #24 tablet PRN Reason: Forms: Return to Work Referrals: [facility] ([facility] [Provider Group] - Follow up as needed
--- NOTE | 2020-07-24 15:31 | RADIOLOGY REPORT (SQ) ---
EXAM DESCRIPTION: CT HEAD WITHOUT IMAGES COMPLETED DATE/TIME: 07/24/2020 12:52 pm REASON FOR STUDY: HI, ?seizure COMPARISON: None. TECHNIQUE: Axial images acquired through the brain without intravenous contrast. Images reviewed wi th bone, brain and subdural windows. Additional sagittal and coronal reconstructions were generated. Images stored on PACS. All CT scanners at this facility use dose modulation, iterative reconstruction, and/or weight based d osing when appropriate to reduce radiation dose to as low as reasonably achievable (ALARA). [facility]: Dose Right [facility]: CareDose [facility]: Dose Right [facility]: Teradose 4D [facility]: [place] RADIATION DOSE: mGy. LIMITATIONS: None. FINDINGS: VENTRICLES: Normal size and contour. CEREBRUM: No masses. No hemorrhage. No midline shift. No evidence for acute infarction. Normal gra y/white matter differentiation. No areas of low density in the white matter. CEREBELLUM: No masses. No hemorrhage. No alteration of density. No evidence for acute infarction. EXTRAAXIAL SPACES: No fluid collections. No masses. ORBITS AND GLOBE: No intra- or extraconal masses. Normal contour of globe without masses. CALVARIUM: No fracture. PARANASAL SINUSES: No fluid or mucosal thickening. SOFT TISSUES: No mass or hematoma. OTHER: No other significant finding. IMPRESSION: NORMAL BRAIN CT WITHOUT CONTRAST. EVIDENCE OF ACUTE STROKE: NO. COMMENT: Quality ID # [id number]: Final reports with documentation of one or more dose reduction techniques (e.g., Automated exposure control, adjustment of the mA and/or kV according to patient size, use of iterative reconstruction technique) TECHNICAL DOCUMENTATION: JOB ID: [id number] 2010 [employer]- All Rights Reserved Reading location - IP/workstation name: [email or web address]
--- NOTE | 2020-07-24 15:32 | RADIOLOGY REPORT (SQ) ---
EXAM DESCRIPTION: CT CERVICAL SPINE WITHOUT IMAGES COMPLETED DATE/TIME: 07/24/2020 12:52 pm REASON FOR STUDY: HI, choking "game", neck pain COMPARISON: None. TECHNIQUE: Axial images acquired through the cervical spine without intravenous contrast. Images re viewed with lung, soft tissue and bone windows. Reconstructed coronal and sagittal MPR images review ed. Images stored on PACS. All CT scanners at this facility use dose modulation, iterative reconstruction, and/or weight based d osing when appropriate to reduce radiation dose to as low as reasonably achievable (ALARA). [facility]: Dose Right [facility]: CareDose [facility]: Dose Right [facility]: Teradose 4D [facility]: [place] RADIATION DOSE: mGy. LIMITATIONS: None. FINDINGS: ALIGNMENT: Anatomic. MINERALIZATION: Normal. VERTEBRAL BODIES: No fractures or dislocation. DISCS: No significant disc disease. FACETS, LATERAL MASSES, POSTERIOR ELEMENTS: No fractures. No dislocation. No acute findings. HARDWARE: None in the spine. VISUALIZED RIBS: No fractures. LUNG APICES AND SOFT TISSUES: No significant or acute findings. OTHER: No other significant finding. IMPRESSION: NO ACUTE OR SIGNIFICANT FINDINGS IN THE CERVICAL SPINE. TECHNICAL DOCUMENTATION: JOB ID: [id number] Quality ID # [id number]: Final reports with documentation of one or more dose reduction techniques (e.g., Au tomated exposure control, adjustment of the mA and/or kV according to patient size, use of iterative reconstruction technique) 2010 [employer]- All Rights Reserved Reading location - IP/workstation name: [email or web address]
--- NOTE | 2020-07-24 15:33 | RADIOLOGY REPORT (SQ) ---
EXAM DESCRIPTION: T SPINE AP/LAT IMAGES COMPLETED DATE/TIME: 07/24/2020 12:49 pm REASON FOR STUDY: fall, upper back pain COMPARISON: None. NUMBER OF VIEWS: Two views. TECHNIQUE: AP and lateral radiographic images acquired of the thoracic spine. LIMITATIONS: None. FINDINGS: MINERALIZATION: Normal. ALIGNMENT: Normal. No scoliosis. VERTEBRAE: No fracture or bone lesion. Maintained height, normal segmentation. DISCS: No significant loss of height or significant narrowing. No large osteophytes. HARDWARE: None in the spine. MEDIASTINUM AND SOFT TISSUES: Normal heart size and aortic contour. No soft tissue abnormality. VISUALIZED LUNG CLARKE: Clear. OTHER: No other significant finding. IMPRESSION: NO SIGNIFICANT RADIOGRAPHIC FINDING IN THE THORACIC SPINE. TECHNICAL DOCUMENTATION: JOB ID: [id number] 2010 [employer]- All Rights Reserved Reading location - IP/workstation name: [email or web address]
== END 2020-07-24 14:55 | disposition home or self-care (01) ==
LOC: ER 11:49
DX: S16.1XXA Strain of muscle, fascia and tendon at neck level, initial encounter (principal); S09.90XA Unspecified injury of head, initial encounter; M62.830 Muscle spasm of back; W18.39XA Other fall on same level, initial encounter; Y93.85 Activity, choking game; Y92.009 Unspecified place in unspecified non-institutional (private) residence as the place of occurrence of the external cause; R56.9 Unspecified convulsions; R32 Unspecified urinary incontinence; Z91.041 Radiographic dye allergy status; Z88.8 Allergy status to other drugs, medicaments and biological substances; Z88.1 Allergy status to other antibiotic agents; Z88.0 Allergy status to penicillin
CPT/HCPCS: 99284; 72070; 70450; 72125; J3490

== ENCOUNTER 2020-08-25 15:16 | Emergency (ER) | payer MEDICAID ==
[2020-08-25] MEDS ORDERED: ONDANSETRON HCL INJ/PF 4 MG/2 ML SDV IV ONE (15:42)
[2020-08-25] MEDS ORDERED: MORPHINE SULFATE 10 MG/ML INJ IV ONE (15:42)
[2020-08-25] MEDS ORDERED: NORMAL SALINE 1000 ML 1,000 ML IV ONE (15:42)
--- NOTE | 2020-08-25 15:45 | ER Document Report ---
ED Medical Screen (RME) - General Chief Complaint: Abdominal Pain Stated Complaint: ABDOMINAL PAIN, DIARRHEA Time Seen by Provider: 08/25/20 15:35 Mode of Arrival: Ambulatory Information source: Patient Notes: HPI; 29-year-old female with past medical history significant for Crohn's disease presents to the emergency room complaining of a worsening Crohn's flare for the past 10 days. States she saw her primary care physician who put her on Flagyl and prednisone which she states she completed yesterday. States last night she started with a fever of 101.6. Has taken Tylenol with some relief. Also complains of persistent nausea with vomiting unable to tolerate p.o. fluids. Persistent diarrhea. States diarrhea is similar to her previous Crohn's flares. Denies any COVID-19 exposure. Recently tested for Covid 10 days ago as her boyfriend is in the and she has to be tested frequently. Last dose of Tylenol about an hour and a half prior to arrival. PE: Alert and oriented x3. Lungs: Clear to auscultation without rales, rhonchi, wheezes. Heart: Tachycardic without murmurs, rubs, gallops. I have greeted and performed a rapid initial assessment of this patient. A co mprehensive ED assessment and evaluation of the patient, analysis of test results and completion of the medical decision making process will be conducted by additional ED providers. I have specifically instructed the patient or family members with the patient to immediately return to any nursing staff should anything change in the patient's condition or with their chief complaint. TRAVEL OUTSIDE OF THE [place] IN LAST 30 DAYS: No - Related Data Allergies/Adverse Reactions: Iodinated Contrast Media Allergy (Intermediate, Verified 08/25/20 15:35) other aspirin Allergy (Verified 08/25/20 15:35) ciprofloxacin [From Cipro] Allergy (Verified 08/25/20 15:35) dicyclomine [From Bentyl] Allergy (Verified 08/25/20 15:35) haloperidol [From Haldol] Allergy (Verified 08/25/20 15:35) ketorolac [From Toradol] Allergy (Verified 08/25/20 15:35) metoclopramide [From Reglan] Allergy (Verified 08/25/20 15:35) NSAIDS (Non-Steroidal Anti-Inflamma Allergy (Verified 08/25/20 15:35) piperacillin [From Zosyn] Allergy (Verified 08/25/20 15:35) sulfamethoxazole [From Bactrim] Allergy (Verified 08/25/20 15:35) tazobactam [From Zosyn] Allergy (Verified 08/25/20 15:35) trimethoprim [From Bactrim] Allergy (Verified 08/25/20 15:35) Past Medical History Neurological Medical History: Reports: Hx Seizures Renal/ Medical History: Reports: Hx Kidney Stones GI Medical History: Reports: Hx Crohn's Disease Musculoskeltal Medical History: Reports Hx Musculoskeletal Trauma Infectious Medical History: Reports: Hx C-Diff Past Surgical History: Reports: Hx Abdominal Surgery, Hx Appendectomy, Hx Section, Hx Cholecystectomy, Hx Kidney (Renal Surgery) - kidney stents, Hx Tubal Ligation - Immunizations Immunizations up to date: Yes Physical Exam - Vital signs Vitals: Temp Pulse Resp BP Pulse Ox 99.3 F 95 18 114/74 99 08/25/20 15:20 08/25/20 15:20 08/25/20 15:20 08/25/20 15:20 08/25/20 15:20 Course - Vital Signs Vital signs: Temp Pulse Resp BP Pulse Ox 99.3 F 95 18 114/74 99 08/25/20 15:20 08/25/20 15:20 08/25/20 15:20 08/25/20 15:20 08/25/20 15:20
[2020-08-25 16:24] LABS: ABSOLUTE LYMPHOCYTES (AUTO) 1.3 10^3/uL (0.5-4.7); ABSOLUTE MONOCYTES (AUTO) 0.3 10^3/uL (0.1-1.4); BASOPHILS % (AUTO) 0.6 % (0-2); EOSINOPHILS % (AUTO) 0.6 % (0-6); HEMATOCRIT 37.1 % (36.0-47.0); HEMOGLOBIN 12.8 g/dL (12.0-15.5); LYMPHOCYTES % (AUTO) 22.8 % (13-45); MEAN CORPUSCULAR HEMOGLOBIN 30.7 pg (27.0-33.4); MEAN CORPUSCULAR HGB CONC 34.5 g/dL (32.0-36.0); MEAN CORPUSCULAR VOLUME 89 fl (80-97); PLATELET COUNT 266 10^3/uL (150-450); RED BLOOD COUNT 4.17 10^6/uL (3.72-5.28); RED CELL DISTRIBUTION WIDTH 18.6 % (11.5-14.0); TOTAL CELLS COUNTED % (AUTO) 100 %; WHITE BLOOD COUNT 5.6 10^3/uL (4.0-10.5)
[2020-08-25 16:31] LABS: APPEARANCE,URINE CLOUDY; BILIRUBIN,URINE NEGATIVE (NEGATIVE); COLOR,URINE YELLOW; GLUCOSE, URINE NEGATIVE (NEGATIVE); KETONES,URINE NEGATIVE (NEGATIVE); LEUKOCYTE ESTERASE,URINE MODERATE (NEGATIVE); NITRITE,URINE NEGATIVE (NEGATIVE); PROTEIN,URINE 30 mg/dL (NEGATIVE); URINE SPECIFIC GRAVITY 1.027; UROBILINOGEN,URINE NEGATIVE mg/dL (<2.0)
[2020-08-25] MEDS ORDERED: FAMOTIDINE INJ/PF 20 MG/2 ML SDV IV ONE (16:39)
--- NOTE | 2020-08-25 16:39 | ER Document Report ---
ED GI/ - General Chief Complaint: Abdominal Pain Stated Complaint: ABDOMINAL PAIN, DIARRHEA Time Seen by Provider: 08/25/20 15:35 Mode of Arrival: Ambulatory Notes: CHIEF COMPLAINT: Abdominal pain diarrhea vomiting for 2 weeks HPI: 29-year-old female who states she has a history of Crohn's disease for the last 10 years presenting for abdominal pain worse on the left side with multiple episodes of diarrhea and vomiting for 2 weeks. States she had a fever of 101.5 last night. No dysuria. States the pain and diarrhea that she has she feels are typical of when her Crohn's flares up. States that her primary care provider placed her on Flagyl and prednisone a week ago which she finished yesterday without improvement. States her doctor told her she should come to the hospital for evaluation. 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 Patient states she has had a history of C. difficile colitis in the past and does not believe that this is similar. ROS: See HPI - all other systems were reviewed and are otherwise negative Constitutional: Positive fever Eyes: no drainage, no blurred vision ENT: no runny nose, no sore throat Cardiovascular: no chest pain Resp: no SOB, no cough GI: Positive vomiting, positive diarrhea, positive abdominal pain : no dysuria Integumentary: no rash Allergy: no hives Musculoskeletal: no extremity pain or swelling Neurological: no numbness/tingling, no weakness MEDICATIONS: I agree with the patient medications as charted by the RN. ALLERGIES: I agree with the allergies as charted by the RN. PAST MEDICAL HISTORY/PAST SURGICAL HISTORY: Reviewed and agree as charted by RN. SOCIAL HISTORY: Reviewed and agree as charted by RN. FAMILY HISTORY: No significant familial comorbid conditions directly related to patient complaint EXAM: Reviewed vital signs as charted by RN. CONSTITUTIONAL: Alert and oriented and responds appropriately to questions. Well -appearing; well-nourished HEAD: Normocephalic; atraumatic EYES: PERRL; Conjunctivae clear, sclerae non-icteric ENT: normal nose; no rhinorrhea; moist mucous membranes; pharynx without lesions noted, no uvula edema or deviation, no tonsillar hypertrophy, phonation normal NECK: Supple without meningismus; non-tender; no cervical lymphadenopathy, no masses CARD: RRR; no murmurs, no clicks, no rubs, no gallops; symmetric distal pulses RESP: Normal chest excursion without splinting or tachypnea; breath sounds clear and equal bilaterally; no wheezes, no rhonchi, no rales, pulse oximetry 98% on room air not hypoxic ABD/GI: Normal bowel sounds; non-distended; soft, mild generalized abdominal tenderness more prominent on the left side on palpation, no rebound, no guarding; no palpable organomegaly or masses. BACK: The back appears normal and is non-tender to palpation, there is no CVA tenderness EXT: Normal ROM in all joints; non-tender to palpation; no cyanosis, no effusions, no edema SKIN: Normal color for age and race; warm; dry; good turgor; no acute lesions noted NEURO: Moves all extremities equally; Motor and sensory function intact PSYCH: The patient's mood and manner are appropriate. Grooming and personal hygiene are appropriate. MDM: 29-year-old female with history of Crohn's presenting for 2 weeks of symptoms. Subjective fever last night. Afebrile here. Not significantly tachycardic here. Initial screening labs placed via triage process. Patient lists IV contrast as an allergy states it gives her a rash but normally she is able to tolerate it with Benadryl, Pepcid, Solu-Medrol. Patient does not have a current pinsetter mechanic helper. Will evaluate CT imaging and labs and reassess for disposition TRAVEL OUTSIDE OF THE [place] IN LAST 30 DAYS: No - Related Data Allergies/Adverse Reactions: Iodinated Contrast Media Allergy (Intermediate, Verified 08/25/20 15:35) other aspirin Allergy (Verified 08/25/20 15:35) ciprofloxacin [From Cipro] Allergy (Verified 08/25/20 15:35) dicyclomine [From Bentyl] Allergy (Verified 08/25/20 15:35) haloperidol [From Haldol] Allergy (Verified 08/25/20 15:35) ketorolac [From Toradol] Allergy (Verified 08/25/20 15:35) metoclopramide [From Reglan] Allergy (Verified 08/25/20 15:35) NSAIDS (Non-Steroidal Anti-Inflamma Allergy (Verified 08/25/20 15:35) piperacillin [From Zosyn] Allergy (Verified 08/25/20 15:35) sulfamethoxazole [From Bactrim] Allergy (Verified 08/25/20 15:35) tazobactam [From Zosyn] Allergy (Verified 08/25/20 15:35) trimethoprim [From Bactrim] Allergy (Verified 08/25/20 15:35) Past Medical History - General Information source: Patient - Social History Smoking Status: Current Every Day Smoker Family History: Reviewed & Not Pertinent Neurological Medical History: Reports: Hx Seizures Renal/ Medical History: Reports: Hx Kidney Stones GI Medical History: Reports: Hx Crohn's Disease Musculoskeletal Medical History: Reports Hx Musculoskeletal Trauma Infectious Medical History: Reports: Hx C-Diff Past Surgical History: Reports: Hx Abdominal Surgery, Hx Appendectomy, Hx Section, Hx Cholecystectomy, Hx Kidney (Renal Surgery) - kidney stents, Hx Tubal Ligation - Immunizations Immunizations up to date: Yes Physical Exam - Vital signs Vitals: Temp Pulse Resp BP Pulse Ox 99.3 F 95 18 114/74 99 08/25/20 15:20 08/25/20 15:20 08/25/20 15:20 08/25/20 15:20 08/25/20 15:20 Course - Re-evaluation Re-evalutation: 08/25/20 17:51 Patient's lab work does not show acute emergent abnormalities. Patient CT imaging shows mild enterocolitis but no abscess or fistula or other significant abnormality to suggest a surgical consult is needed today. Patient will be referred to GI. I will switch patient to Decadron, Augmentin. She has a long list of allergies. Return instructions discussed 08/25/20 17:52 patient has declined C diff testing 08/25/20 17:55 Patient indicates that she does have an allergy to Zosyn but has taken Augmentin with no difficulty - Vital Signs Vital signs: Temp Pulse Resp BP Pulse Ox 99.3 F 95 18 114/74 99 08/25/20 15:20 08/25/20 15:20 08/25/20 15:20 08/25/20 15:20 08/25/20 15:20 - Laboratory Result Diagrams: 08/25/20 15:45 08/25/20 15:45 Laboratory results interpreted by me: 08/25/20 08/25/20 08/25/20 15:45 15:45 15:50 RDW 18.6 H Total Protein 8.5 H Urine Protein 30 H Urine Blood SMALL H Ur Leukocyte Esterase MODERATE H Discharge - Discharge Clinical Impression: Enterocolitis Condition: Stable Disposition: HOME, SELF-CARE Additional Instructions: Medications as prescribed no driving if taking narcotics for pain. Follow-up closely with gastroenterology for further evaluation and treatment call for appointment. Return for worsened condition or symptoms Prescriptions: Amoxicillin/Potassium Clav [Augmentin 875-125 Tablet] 1 tab PO NOW #20 tablet Dexamethasone [Decadron 4 Mg Tablet] 4 mg PO DAILY #7 tablet Hydrocodone/Acetaminophen [[place] 5-325 mg Tablet] 1 tab PO Q4 PRN #10 tablet PRN Reason: Referrals: MY,HELEN [Primary Care Provider] - Follow up as needed RICHI CARD MD [ACTIVE STAFF] - Follow up as needed
[2020-08-25] MEDS ORDERED: DIPHENHYDRAMINE HCL 50 MG/ML VIAL IV ONE (16:40)
[2020-08-25 16:41] LABS: ALKALINE PHOSPHATASE 71 U/L (38-126); ANION GAP 9 (5-19); ASPARTATE AMINO TRANSFERASE 25 U/L (14-36); BILIRUBIN,TOTAL 0.3 mg/dL (0.2-1.3); BLOOD UREA NITROGEN 16 mg/dL (7-20); CALCIUM 10.1 mg/dL (8.4-10.2); CARBON DIOXIDE 26 mmol/L (22-30); CHLORIDE 104 mmol/L (98-107); GLUCOSE 96 mg/dL (75-110); POTASSIUM 4.2 mmol/L (3.6-5.0); TOTAL PROTEIN 8.5 g/dL (6.3-8.2)
[2020-08-25] MEDS ORDERED: METHYLPREDNISOLONE INJ 40 MG/1 ML SDV IV ONE (16:41)
--- NOTE | 2020-08-25 17:32 | RADIOLOGY REPORT (SQ) ---
EXAM DESCRIPTION: CT ABD/PELVIS WITH IV ONLY IMAGES COMPLETED DATE/TIME: 08/25/2020 2:16 pm REASON FOR STUDY: abdominal pain COMPARISON: 07/10/2020 TECHNIQUE: CT scan of the abdomen and pelvis performed using helical scanning technique with dynamic intravenous contrast injection. No oral contrast. Images reviewed with lung, soft tissue, and bone windows. Reconstructed coronal and sagittal MPR images reviewed. Delayed images for evaluation of the urinary system also acquired. All images stored on PACS. All CT scanners at this facility use dose modulation, iterative reconstruction, and/or weight based d osing when appropriate to reduce radiation dose to as low as reasonably achievable (ALARA). [facility]: Dose Right [facility]: CareDose [facility]: Dose Right [facility]: Teradose 4D [facility]: Matchup CONTRAST TYPE AND DOSE: contrast/concentration: Isovue 350.00 mmol/ml; Total Contrast Delivered: 69. 0 ml; Total Saline Delivered: 64.9 ml RENAL FUNCTION: None required. The patient is less than 50 years old. RADIATION DOSE: CT Rad equipment meets quality standard of care and radiation dose reduction techniq ues were employed. CTDIvol: 4.9 - 5.5 mGy. DLP: 807 mGy-cm.. LIMITATIONS: Mild artifact in the pelvis. FINDINGS: LOWER CHEST: Lung bases are clear. LIVER: Normal size. No masses. No dilated ducts. SPLEEN: Normal size. No focal lesions. PANCREAS: No masses. No significant calcifications. No adjacent inflammation or peripancreatic fluid collections. Pancreatic duct not dilated. GALLBLADDER: Status post cholecystectomy. ADRENAL GLANDS: No significant masses or asymmetry. RIGHT KIDNEY AND URETER: No solid masses. No significant calcifications. No hydronephrosis or hyd roureter. LEFT KIDNEY AND URETER: No solid masses. No significant calcifications. No hydronephrosis or hydr oureter. AORTA AND VESSELS: No aneurysm. No dissection. Renal arteries, SMA, celiac without stenosis. RETROPERITONEUM: No retroperitoneal adenopathy, hemorrhage or masses. BOWEL AND PERITONEAL CAVITY: Some nonspecific scattered fluid-filled small bowel loops without dilata tion. There is suggestion of some minimal fat stranding in the mesenteric with possible he was mild fat stranding adjacent to the colon. Colon is underdistended which degrades evaluation of wall thick ness. . No adenopathy. There may be some trace free pelvic fluid. APPENDIX: Surgically absent. PELVIS: No suspicious abnormality of the uterus and ovaries. Urinary bladder is underdistended. ABDOMINAL WALL: No masses. No hernias. BONES: No significant or acute findings. OTHER: No other significant finding. IMPRESSION: 1. Some mild nonspecific fluid-filled small bowel loops and some possible mild paracoli c fat stranding. Findings can be seen with enterocolitis. No bowel obstruction. 2. No other acute abnormality. TECHNICAL DOCUMENTATION: JOB ID: [id number] Quality ID # [id number]: Final reports with documentation of one or more dose reduction techniques (e.g., Au tomated exposure control, adjustment of the mA and/or kV according to patient size, use of iterative reconstruction technique) 2010 [employer]- All Rights Reserved Reading location - IP/workstation name: [email or web address]
[2020-08-25] MEDS ORDERED: DEXAMETHASONE SOD PHOSPHATE INJ 4 MG/1 ML VIAL IV ONE (17:57)
[2020-08-25 18:37] VITALS: BP 121/59
== END 2020-08-25 18:36 | disposition home or self-care (01) ==
LOC: ER 15:16
DX: K52.9 Noninfective gastroenteritis and colitis, unspecified (principal); R11.10 Vomiting, unspecified; F17.200 Nicotine dependence, unspecified, uncomplicated
CPT/HCPCS: 99285; 96361; 96374; 96375; 36415; 84703; 85025; 80053; 81001; 74177; J1200; J2920; J2270; J2405; J7030; S0028

== ENCOUNTER 2020-10-08 13:39 | Emergency (ER) | payer MEDICAID ==
[2020-10-08 14:02] VITALS: BP 115/73
[2020-10-08] MEDS ORDERED: NORMAL SALINE 1000 ML 1,000 ML IV ONE (14:35)
[2020-10-08] MEDS ORDERED: ACETAMINOPHEN 325 MG TABLET PO ONE (14:38)
--- NOTE | 2020-10-08 14:49 | ER Document Report ---
ED Medical Screen (RME) - General Chief Complaint: Nausea/Vomiting Stated Complaint: STOMACH PAIN,VOMITING Time Seen by Provider: 10/08/20 14:32 Primary Care Provider: HELEN PEPE [Primary Care Provider] - Follow up as needed TRAVEL OUTSIDE OF THE [place] IN LAST 30 DAYS: No - HPI Notes: 10/08/20 14:47 29-year-old female with a history of Crohn's, iron deficiency anemia, endometri osis and C. difficile with fecal transplant presents to the emergency room today with complaints of bilateral flank pain for the last week. Reports pain is 5 out of 5 and constant. States she tried [id number] Tylenol and cranberry pills as well as AZO. She does report she has had some nausea and vomiting with fevers as high as 101. Patient does report that she has a history of hydronephr osis as well as nephrolithiasis. Unsure of her last menstrual cycle. Denies any vaginal bleeding or vaginal discharge. Has not tried any xcbr-ovq-hiaukvy medications today. I have greeted and performed a rapid initial assessment of this patient. A comprehensive ED assessment and evaluation of the patient, analysis of test results and completion of the medical decision making process will be conducted by additional ED providers. PHYSICAL EXAMINATION: GENERAL: Well-appearing, well-nourished and in no acute distress. CV: s1, s2 regular LUNGS: No respiratory distress abd: Abdominal tenderness, no abdominal distention. Left greater than right flank pain Musculoskeletal: Normal range of motion NEUROLOGICAL: Normal speech, normal gait. SKIN: Warm, Dry, normal turgor, no rashes or lesions noted. The patient was evaluated during a global COVID-19 pandemic and that diagnosis was suspected/considered upon their initial presentation. Their evaluation, treatment and testing was consistent with current guidelines for patients who present with complaints or symptoms and may be related to COVID-19. 10/08/20 14:49 - Related Data Allergies/Adverse Reactions: Iodinated Contrast Media Allergy (Intermediate, Verified 08/25/20 15:35) other aspirin Allergy (Verified 08/25/20 15:35) ciprofloxacin [From Cipro] Allergy (Verified 08/25/20 15:35) dicyclomine [From Bentyl] Allergy (Verified 08/25/20 15:35) haloperidol [From Haldol] Allergy (Verified 08/25/20 15:35) ketorolac [From Toradol] Allergy (Verified 08/25/20 15:35) metoclopramide [From Reglan] Allergy (Verified 08/25/20 15:35) NSAIDS (Non-Steroidal Anti-Inflamma Allergy (Verified 08/25/20 15:35) piperacillin [From Zosyn] Allergy (Verified 08/25/20 15:35) sulfamethoxazole [From Bactrim] Allergy (Verified 08/25/20 15:35) tazobactam [From Zosyn] Allergy (Verified 08/25/20 15:35) trimethoprim [From Bactrim] Allergy (Verified 08/25/20 15:35) Past Medical History Neurological Medical History: Reports: Hx Seizures Renal/ Medical History: Reports: Hx Kidney Stones GI Medical History: Reports: Hx Crohn's Disease Musculoskeltal Medical History: Reports Hx Musculoskeletal Trauma Infectious Medical History: Reports: Hx C-Diff Past Surgical History: Reports: Hx Abdominal Surgery, Hx Appendectomy, Hx Section, Hx Cholecystectomy, Hx Kidney (Renal Surgery) - kidney stents, Hx Tubal Ligation - Immunizations Immunizations up to date: Yes Physical Exam - Vital signs Vitals: Temp Pulse Resp BP Pulse Ox 99.3 F 89 20 115/73 100 10/08/20 13:58 10/08/20 13:58 10/08/20 13:58 10/08/20 13:58 10/08/20 13:58 Course - Vital Signs Vital signs: Temp Pulse Resp BP Pulse Ox 99.3 F 89 20 115/73 100 10/08/20 13:58 10/08/20 13:58 10/08/20 13:58 10/08/20 13:58 10/08/20 13:58 Doctor's Discharge - Discharge Referrals: LOCALMD,NO [Primary Care Provider] - Follow up as needed
[2020-10-08 15:30] LABS: ABSOLUTE LYMPHOCYTES (AUTO) 1.1 10^3/uL (0.5-4.7); ABSOLUTE MONOCYTES (AUTO) 0.3 10^3/uL (0.1-1.4); ABSOLUTE NEUT (AUTO) 3.9 10^3/uL (1.7-8.2); BASOPHILS % (AUTO) 0.8 % (0-2); EOSINOPHILS % (AUTO) 0.1 % (0-6); HEMATOCRIT 34.1 % (36.0-47.0); HEMOGLOBIN 11.5 g/dL (12.0-15.5); MEAN CORPUSCULAR HEMOGLOBIN 29.8 pg (27.0-33.4); MEAN CORPUSCULAR HGB CONC 33.9 g/dL (32.0-36.0); MEAN CORPUSCULAR VOLUME 88 fl (80-97); MONOCYTES % (AUTO) 5.8 % (3-13); PLATELET COUNT 263 10^3/uL (150-450); RED BLOOD COUNT 3.87 10^6/uL (3.72-5.28); RED CELL DISTRIBUTION WIDTH 13.9 % (11.5-14.0); SEGMENTED NEUTROPHILS % (AUTO) 73.3 % (42-78); TOTAL CELLS COUNTED % (AUTO) 100 %; WHITE BLOOD COUNT 5.3 10^3/uL (4.0-10.5)
[2020-10-08 15:37] LABS: APPEARANCE,URINE SLIGHTLY-CLOUDY; BILIRUBIN,URINE NEGATIVE (NEGATIVE); COLOR,URINE YELLOW; GLUCOSE, URINE NEGATIVE (NEGATIVE); KETONES,URINE 20 mg/dL (NEGATIVE); PROTEIN,URINE 30 mg/dL (NEGATIVE); URINE SPECIFIC GRAVITY 1.026; UROBILINOGEN,URINE NEGATIVE mg/dL (<2.0)
--- NOTE | 2020-10-08 15:40 | ER Document Report ---
ED General - General Chief Complaint: Urinary Problem Stated Complaint: STOMACH PAIN,VOMITING Time Seen by Provider: 10/08/20 14:32 Primary Care Provider: HELEN PEPE [Primary Care Provider] - Follow up as needed Mode of Arrival: Ambulatory Information source: Patient TRAVEL OUTSIDE OF THE [place] IN LAST 30 DAYS: No - HPI Notes: Patient presents complaint of abdominal pain. She states it is in the suprapubic area as well as in the bilateral CVA area. It is a cramping or tight sensation. It does come and go. It is severe. She states she is unable to sleep last night secondary to this pain. Is been going on approximate 3 days. She also has some pain and burning with urination. She has some frequency. She states this feels exactly "when she has had previous urinary tract infections. She states she also has Crohn's but that has been in remission. She states this is not feel like her Crohn's disease. She states she does not want a CT scan of her abdomen as she has had many of those in the past. She states she would like to just try some antibiotics and she will return if this does not work. She has had some nausea as well. No blood in her stool. No fevers. She denies any vaginal symptoms. She states she is not concerned about being because she has had her tubes tied. She states she is also not concerned about any type of 60 transmitted disease. - Related Data Allergies/Adverse Reactions: Iodinated Contrast Media Allergy (Intermediate, Verified 10/08/20 15:02) other aspirin Allergy (Verified 10/08/20 15:02) ciprofloxacin [From Cipro] Allergy (Verified 10/08/20 15:02) dicyclomine [From Bentyl] Allergy (Verified 10/08/20 15:02) haloperidol [From Haldol] Allergy (Verified 10/08/20 15:02) ketorolac [From Toradol] Allergy (Verified 10/08/20 15:02) metoclopramide [From Reglan] Allergy (Verified 10/08/20 15:02) NSAIDS (Non-Steroidal Anti-Inflamma Allergy (Verified 10/08/20 15:02) piperacillin [From Zosyn] Allergy (Verified 10/08/20 15:02) sulfamethoxazole [From Bactrim] Allergy (Verified 10/08/20 15:02) tazobactam [From Zosyn] Allergy (Verified 10/08/20 15:02) trimethoprim [From Bactrim] Allergy (Verified 10/08/20 15:02) Past Medical History - General Information source: Patient - Social History Smoking Status: Never Smoker Chew tobacco use (# tins/day): No Frequency of alcohol use: None Drug Abuse: None Family History: Reviewed & Not Pertinent Patient has homicidal ideation: No Neurological Medical History: Reports: Hx Seizures Renal/ Medical History: Reports: Hx Kidney Stones GI Medical History: Reports: Hx Crohn's Disease Musculoskeletal Medical History: Reports Hx Musculoskeletal Trauma Infectious Medical History: Reports: Hx C-Diff Past Surgical History: Reports: Hx Abdominal Surgery, Hx Appendectomy, Hx Section, Hx Cholecystectomy, Hx Kidney (Renal Surgery) - kidney stents, Hx Tubal Ligation - Immunizations Immunizations up to date: Yes Review of Systems - Review of Systems Constitutional: denies: Chills, Fever Cardiovascular: denies: Chest pain, Palpitations Respiratory: denies: Cough, Short of breath -: Yes All other systems reviewed and negative Physical Exam - Vital signs Vitals: Temp 99.3 F 10/08/20 13:40 Interpretation: Normal - General General appearance: Appears well, Alert - HEENT Head: Normocephalic, Atraumatic Eyes: Normal Pupils: PERRL - Respiratory Respiratory status: No respiratory distress Chest status: Nontender Breath sounds: Normal Chest palpation: Normal - Cardiovascular Rhythm: Regular Heart sounds: Normal auscultation Murmur: No - Abdominal Inspection: Normal Distension: No distension Bowel sounds: Normal Tenderness: Tender - Mild bilateral lower quadrants Organomegaly: No organomegaly - Back Back: Normal, Nontender - Extremities General upper extremity: Normal inspection, Nontender, Normal color, Normal ROM, Normal temperature General lower extremity: Normal inspection, Nontender, Normal color, Normal ROM, Normal temperature, Normal weight bearing. No: Arabella's sign - Neurological Neuro grossly intact: Yes Cognition: Normal Orientation: AAOx4 Madhuri Coma Scale Eye Opening: Spontaneous Madhuri Coma Scale Verbal: Oriented Madhuri Coma Scale Motor: Obeys Commands [place] Coma Scale Total: 15 Speech: Normal Motor strength normal: LUE, RUE, LLE, RLE Sensory: Normal - Psychological Associated symptoms: Normal affect, Normal mood - Skin Skin Temperature: Warm Skin Moisture: Dry Skin Color: Normal Course - Vital Signs Vital signs: Temp Pulse Resp BP Pulse Ox 99.3 F 89 20 115/73 100 10/08/20 13:58 10/08/20 13:58 10/08/20 13:58 10/08/20 13:58 10/08/20 13:58 - Laboratory Results Result Diagrams: 10/08/20 15:09 10/08/20 15:09 Laboratory Results Interpreted: 10/08/20 15:09 Hgb 11.5 L Hct 34.1 L Critical Laboratory Results Reviewed: No Critical Results - Radiology Results Critical Radiology Results Reviewed: No Critical Results Discharge - Discharge Clinical Impression: UTI (urinary tract infection) Qualifiers: Urinary tract infection type: acute cystitis Hematuria presence: without hematuria Qualified Code(s): N30.00 - Acute cystitis without hematuria Condition: Stable Disposition: HOME, SELF-CARE Instructions: Urinary Tract Infection ([facility]) Prescriptions: Cefdinir 300 mg PO BID 7 Days #14 capsule Hydrocodone/Acetaminophen [[place] 5-325 mg Tablet] 1 tab PO Q6 PRN 3 Days #12 tablet PRN Reason: For Pain Ondansetron [Zofran Odt 4 mg Tablet] 1 - 2 tab PO Q4H PRN #15 tab.rapdis PRN Reason: For Nausea/Vomiting Referrals: [facility] [Provider Group] - Follow up in 3-5 days
[2020-10-08 15:44] LABS: ALBUMIN 4.4 g/dL (3.5-5.0); ALKALINE PHOSPHATASE 69 U/L (38-126); ANION GAP 7 (5-19); ASPARTATE AMINO TRANSFERASE 18 U/L (14-36); BILIRUBIN,DIRECT 0.1 mg/dL (0.0-0.4); BILIRUBIN,TOTAL 0.5 mg/dL (0.2-1.3); BLOOD UREA NITROGEN 13 mg/dL (7-20); CALCIUM 9.4 mg/dL (8.4-10.2); CARBON DIOXIDE 25 mmol/L (22-30); CHLORIDE 106 mmol/L (98-107); GLUCOSE 93 mg/dL (75-110); POTASSIUM 3.7 mmol/L (3.6-5.0); TOTAL PROTEIN 7.3 g/dL (6.3-8.2)
== END 2020-10-08 15:54 | disposition home or self-care (01) ==
LOC: ER 13:39
DX: N30.00 Acute cystitis without hematuria (principal); R10.30 Lower abdominal pain, unspecified; R10.813 Right lower quadrant abdominal tenderness; R10.814 Left lower quadrant abdominal tenderness; R30.0 Dysuria; R11.0 Nausea; Z98.51 Tubal ligation status; Z91.041 Radiographic dye allergy status; Z88.8 Allergy status to other drugs, medicaments and biological substances; Z88.1 Allergy status to other antibiotic agents
CPT/HCPCS: 36415; 80053; 81001; 84702; 85025; 99283